=== PATIENT | female | born 1955 | race Hispanic/Latino ===

== ENCOUNTER → 2017-11-07 | Outpatient (CLI) | payer MEDICARE ==
[~2017-11-07] MED LIST: ASPI-1181 PO; ATOR10 PO; ATOR10TA69 PO; ATOR40TA69 PO; BENZ-51 PO; CILO100T PO; DOXY100C2 PO; ESOM40CA PO; FERS325 PO; GUAI177L5 PO; IBUP-2077 PO; INSU100I13 SQ; INSU3INS5 SQ; ISOS30TA6 PO; ISOS60TA4 PO; LISI-617 PO; LISI1TAB13 PO; METO-408 PO; METO-409 PO; METO25TA3 PO; METO25TA6 PO; OMEP40CA37 PO; PRED20TA3 PO; PREG50 GT; REGADENOSON 0.4 MG/5 ML PF SYG IVP SCH; SENN8.6T90 PO; SULF1TAB3 PO; TORS10TA18 PO
== END | disposition home or self-care (01) ==
LOC: SHCH 08:32
PROVIDERS: ATTEND Internal Medicine Cardiovascular Disease
DX: I25.5 Ischemic cardiomyopathy (principal)
CPT/HCPCS: 78452; 93017; 96374; A9500 ×2; J2785

== ENCOUNTER 2017-12-02 06:00 | Day surgery (SDC) | payer MEDICARE ==
[2017-12-01 09:55] VITALS: BP 119/68
[2017-12-01 10:30] LABS: BASOPHILS % (AUTO) 0.8 % (0.0-5.0); EOSINOPHILS % (AUTO) 4.1 % (0.0-8.0); HEMATOCRIT 28.5 % (36-48); LYMPHOCYTES % (AUTO) 20.3 % (21.0-51.0); MEAN CORPUSCULAR HEMOGLOBIN 27.4 pg (27.0-33.0); MEAN CORPUSCULAR HGB CONC 32.7 g/dL (32.0-36.0); MEAN CORPUSCULAR VOLUME 83.9 fL (79-99); MONOCYTES % (AUTO) 8.1 % (3.0-13.0); NEUTROPHILS % (AUTO) 66.7 % (40.0-77.0); PLATELET COUNT (AUTO) 130 K/uL (130-400); RED CELL DISTRIBUTION WIDTH 16.8 % (11.0-15.5); WHITE BLOOD COUNT (AUTO) 7.4 K/uL (4.8-10.8)
[2017-12-01 10:43] LABS: CREATININE 1.1 mg/dL (0.5-1.5); POTASSIUM 5.4 mmol/L (3.5-5.1)
[2017-12-01 10:44] LABS: INR 0.99 (0.85-1.15); PARTIAL THROMBOPLASTIN TIME 27.9 SEC (26.3-35.5); PROTHROMBIN TIME 10.4 SEC (9.6-11.6)
[2017-12-01 10:45] LABS: APPEARANCE,URINE Clear (CLEAR); BILIRUBIN,URINE Negative (NEGATIVE); COLOR,URINE Yellow (YELLOW); GLUCOSE, URINE (UA) TRACE mg/dL (NEGATIVE); KETONES,URINE Negative (NEGATIVE); LEUKOCYTE ESTERASE ,URINE Small (NEGATIVE); NITRATE,URINE Negative (NEGATIVE); OCCULT BLOOD,URINE Negative (NEGATIVE); PROTEIN,URINE POS 1+ (NEGATIVE); UROBILINOGEN,URINE 0.2 mg/dL (0.2-1.0)
[2017-12-01 11:09] LABS: BACTERIA,URINE Rare /HPF (None Seen); SQUAMOUS EPITHELIAL CELL,UR Rare /LPF (0-2)
[2017-12-02] VITALS (11 sets, daily range): BP systolic 99–140; BP diastolic 36–83
[~2017-12-02] VITALS: Ht 161.3 cm; Wt 122.2 kg
[~2017-12-02 06:00] MED LIST changes: -ATOR10 PO; -ATOR40TA69 PO; -BENZ-51 PO; -CILO100T PO; -DOXY100C2 PO; -ESOM40CA PO; -IBUP-2077 PO; -INSU100I13 SQ; -ISOS30TA6 PO; -ISOS60TA4 PO; -LISI-617 PO; -METO-408 PO; -METO-409 PO; -METO25TA3 PO; -OMEP40CA37 PO; -PRED20TA3 PO; -PREG50 GT; -REGADENOSON 0.4 MG/5 ML PF SYG IVP SCH; -SENN8.6T90 PO; +SODIUM CHLORIDE 0.9% 500ML 500 ML IV SCH; -SULF1TAB3 PO; -TORS10TA18 PO
[2017-12-02] MEDS ORDERED: SODIUM CHLORIDE 0.9% 1000ML 1,000 ML IV ONE (06:25)
[2017-12-02 06:43] LABS: POTASSIUM 5.4 mmol/L (3.5-5.1)
[2017-12-02] MEDS ORDERED: METO-408 PO (07:06)
[2017-12-02] MEDS ORDERED: BENZ-51 PO (07:10)
[2017-12-02] MEDS ORDERED: SULF1TAB3 PO (07:10)
[2017-12-02] MEDS ORDERED: PRED20TA3 PO (07:10)
[2017-12-02] MEDS ORDERED: HEPARIN SODIUM 1000UNIT/ML 10ML VIAL ONE (07:11)
[2017-12-02] MEDS ORDERED: BIVALIRUDIN 250 MG/VIAL IV ONE (07:11)
[2017-12-02] MEDS ORDERED: LIDOCAINE HCL 2% 20ML ONE (07:11)
[2017-12-02] MEDS ORDERED: IOPAMIDOL-370 75 ML VIAL IV ONE (07:11)
[2017-12-02] MEDS ORDERED: NITROGLYCERIN 5 MG/ML 10 ML VIAL IV ONE (07:11)
[2017-12-02] MEDS ORDERED: IOPAMIDOL-370 100 ML VIAL IV ONE (07:11)
[2017-12-02] MEDS ORDERED: FENTANYL CITRATE PF 50 MCG/1 ML 2ML VIAL ONE (07:46)
[2017-12-02] MEDS ORDERED: MIDAZOLAM HCL 1 MG/ML 2ML VIAL ONE (07:46)
[2017-12-02] MEDS ORDERED: SODIUM CHLORIDE 0.9% 1000ML 1,000 ML IV SCH (08:16)
[2017-12-02] MEDS ORDERED: ISOS60TA4 PO (08:26)
[2017-12-02] MEDS ORDERED: DEXTROSE 50%-WATER 50 ML DISP.SYRIN IV PRN (08:30)
[2017-12-02] MEDS ORDERED: METOPROLOL TARTRATE 1 MG/ML 5ML VIAL IV PRN (08:30)
[2017-12-02] MEDS ORDERED: HYDRALAZINE HCL 20 MG/ML VIAL IV PRN (08:30)
[2017-12-02] MEDS ORDERED: NITROGLYCERIN 0.4 MG SL TAB SL PRN (08:30)
[2017-12-02] MEDS ORDERED: GLUCAGON 1MG KIT 1 MG ML IM PRN (08:30)
[2017-12-02] MEDS ORDERED: ACETAMINOPHEN EXTRA STRENGTH 500 MG TABLET ONE (10:31)
[2017-12-02] MEDS ORDERED: ACETAMINOPHEN EXTRA STRENGTH 500 MG TABLET PO SCH (10:34)
[2017-12-02] MEDS ORDERED: INSULIN HUMULIN R 100 UNIT/ML 3ML SQ SCH (11:30)
[2017-12-15] MEDS ORDERED: LISI1TAB13 PO ×2 (10:48→10:51)
== END 2017-12-02 14:40 | disposition home or self-care (01) ==
LOC: DAH 06:00
PROVIDERS: ATTEND Internal Medicine Cardiovascular Disease
DX: I25.119 Atherosclerotic heart disease of native coronary artery with unspecified angina pectoris (principal); E11.51 Type 2 diabetes mellitus with diabetic peripheral angiopathy without gangrene; E78.5 Hyperlipidemia, unspecified; I50.42 Chronic combined systolic (congestive) and diastolic (congestive) heart failure; I11.0 Hypertensive heart disease with heart failure; E66.01 Morbid (severe) obesity due to excess calories; M19.90 Unspecified osteoarthritis, unspecified site; Z79.4 Long term (current) use of insulin; Z79.82 Long term (current) use of aspirin; Z98.890 Other specified postprocedural states; Z89.422 Acquired absence of other left toe(s); Z90.49 Acquired absence of other specified parts of digestive tract; Z83.3 Family history of diabetes mellitus; Z82.49 Family history of ischemic heart disease and other diseases of the circulatory system
CPT/HCPCS: 36415 ×2; 71045; 80048 ×2; 81001; 82948; 85025; 85610; 85730; 93005; 93458; 99156; 99157; C1894 ×3; J1644; J1815; J2250; J3010; J3490 ×2; J7030; Q9967 ×2; 99152; 99153; J0583

== ENCOUNTER 2017-12-12 08:00 | Inpatient (IN) | payer MEDICARE ==
[~2017-12-12] VITALS: Ht 162.6 cm; Wt 126.6 kg
[~2017-12-12 08:00] MED LIST changes: -GUAI177L5 PO; -INSU3INS5 SQ; -LISI1TAB13 PO; -METO25TA6 PO; -SODIUM CHLORIDE 0.9% 500ML 500 ML IV SCH
[2017-12-15 09:55] VITALS: BP 138/72
[2017-12-15 10:21] LABS: BASOPHILS % (AUTO) 0.4 % (0.0-5.0); EOSINOPHILS % (AUTO) 3.2 % (0.0-8.0); HEMATOCRIT 30.4 % (36-48); LYMPHOCYTES % (AUTO) 25.3 % (21.0-51.0); MEAN CORPUSCULAR HEMOGLOBIN 28.1 pg (27.0-33.0); MEAN CORPUSCULAR HGB CONC 33.3 g/dL (32.0-36.0); MEAN CORPUSCULAR VOLUME 84.4 fL (79-99); MONOCYTES % (AUTO) 9.9 % (3.0-13.0); NEUTROPHILS % (AUTO) 61.2 % (40.0-77.0); PLATELET COUNT (AUTO) 160 K/uL (130-400); RED CELL DISTRIBUTION WIDTH 17.2 % (11.0-15.5); WHITE BLOOD COUNT (AUTO) 7.9 K/uL (4.8-10.8)
[2017-12-15 10:28] LABS: HEMOGLOBIN A1C 7.9 % (4.0-6.0)
[2017-12-15 10:35] LABS: ALBUMIN 2.7 g/dL (3.5-5.0); BILIRUBIN,TOTAL 0.4 mg/dL (0.2-1.0); CREATININE 0.9 mg/dL (0.5-1.5); INR 0.96 (0.85-1.15); PARTIAL THROMBOPLASTIN TIME 25.9 SEC (26.3-35.5); POTASSIUM 5.1 mmol/L (3.5-5.1); PROTHROMBIN TIME 10.1 SEC (9.6-11.6); TOTAL PROTEIN, SERUM 6.7 g/dL (6.0-8.3)
[2017-12-15] MEDS ORDERED: ISOS30TA6 PO (10:48)
[2017-12-15] MEDS ORDERED: LISI1TAB13 PO (10:51)
[2017-12-15] MEDS ORDERED: INSU100I13 SQ ×2 (10:59)
[2017-12-16] VITALS (18 sets, daily range): BP systolic 87–192; BP diastolic 49–79
[2017-12-16] MEDS ORDERED: OCTYL 2-CYANOACRYLATE 1 EACH TP ONE (05:43)
[2017-12-16] MEDS ORDERED: HEPARIN SODIUM 1000UNIT/ML 10ML VIAL ONE ×3 (05:43→08:10)
[2017-12-16] MEDS ORDERED: BACITRACIN 50,000 UNIT VIAL ONE (05:43)
[2017-12-16] MEDS ORDERED: PAPAVERINE HCL 30 MG/ML 2ML VIAL ONE (05:43)
[2017-12-16] MEDS ORDERED: NITROGLYCERIN 50 MG/D5% WATER 1 BOT ONE (06:37)
[2017-12-16] MEDS ORDERED: ROCURONIUM BROMIDE 10MG/1ML 5ML VL ONE ×2 (06:45→08:10)
[2017-12-16] MEDS ORDERED: SODIUM CHLORIDE 0.9% 1000ML 1,000 ML IV ONE ×2 (06:50→11:17)
[2017-12-16] MEDS ORDERED: CEFUROXIME SODIUM 1.5 GM VIAL ONE (06:50)
[2017-12-16] MEDS ORDERED: THROMBIN-JMI 5000 UNIT/VIAL TP ONE (07:10)
[2017-12-16] MEDS ORDERED: OMEP40CA37 PO (07:12)
[2017-12-16] MEDS ORDERED: DOXY100C2 PO (07:12)
[2017-12-16] MEDS ORDERED: SENN8.6T90 PO (07:12)
[2017-12-16] MEDS ORDERED: METO25TA3 PO (07:12)
[2017-12-16] MEDS ORDERED: CEFUROXIME SODIUM 1.5 GM VIAL IVP ONE (08:00)
[2017-12-16] MEDS ORDERED: WATER FOR INJECTION,STERILE 20 ML VIAL IJ ONE (08:00)
[2017-12-16] MEDS ORDERED: MIDAZOLAM HCL 1 MG/ML 2ML VIAL ONE (08:09)
[2017-12-16] MEDS ORDERED: AMIODARONE HCL 900MG/18ML IV ONE (08:10)
[2017-12-16] MEDS ORDERED: MILRINONE-D5W 20 MG/100 ML 100 ML IV ONE (08:10)
[2017-12-16] MEDS ORDERED: LIDOCAINE PF 2% 5ML ABBOJECT ONE (08:10)
[2017-12-16] MEDS ORDERED: NOREPINEPHRINE BITARTRATE 1 MG/1 ML ML IV ONE (08:10)
[2017-12-16] MEDS ORDERED: NEOSTIGMINE METHYLSULFATE 1MG/ML IV ONE (08:10)
[2017-12-16] MEDS ORDERED: FENTANYL CITRATE PF 50 MCG/1 ML 20ML VIAL IJ ONE (08:10)
[2017-12-16] MEDS ORDERED: EPINEPHRINE 1 MG/ML AMPULE ONE (08:10)
[2017-12-16] MEDS ORDERED: ESMOLOL HCL 10 MG/ML 10 ML VIAL ONE (08:10)
[2017-12-16] MEDS ORDERED: PROPOFOL 10 MG/ML 20ML VIAL IV ONE (08:10)
[2017-12-16] MEDS ORDERED: PROTAMINE SULFATE 10 MG/ML 25ML VIAL IV ONE (08:10)
[2017-12-16] MEDS ORDERED: GLYCOPYRROLATE 0.2 MG/ML 5 ML VIAL ONE (08:10)
[2017-12-16] MEDS ORDERED: MIDAZOLAM HCL 1 MG/ML 5ML VIAL ONE (08:10)
[2017-12-16] MEDS ORDERED: AMINOCAPROIC ACID 250 MG/ML 20 ML VIAL IV ONE (08:10)
[2017-12-16] MEDS ORDERED: KETAMINE HCL 100 MG/ML 5ML VIAL IJ ONE (08:11)
[2017-12-16 08:35] LABS: ABG BASE EXCESS -4.2 mmol/L (-2.0-3.0); ABG HCO3 21.1 mmol/L (21.0-28.0); ABG PCO2 40 mmHg (32-45)
[2017-12-16 10:13] LABS: ABG HCO3 18.2 mmol/L (21.0-28.0); ABG OXYGEN SATURATION 99.1 % (95.0-99.0); ABG PCO2 31 mmHg (32-45)
[2017-12-16] MEDS ORDERED: SODIUM BICARB 50MEQ 50ML VIAL ONE ×4 (10:13→15:07)
[2017-12-16 11:00] LABS: ABG BASE EXCESS -2.4 mmol/L (-2.0-3.0); ABG OXYGEN SATURATION 98.4 % (95.0-99.0); ABG PCO2 36 mmHg (32-45)
[2017-12-16] MEDS ORDERED: SODIUM CHLORIDE 0.9% 500ML 500 ML IV SCH (11:06)
[2017-12-16] MEDS ORDERED: MORPHINE SULFATE 2 MG/ML 1ML SYG IV PRN (11:15)
[2017-12-16] MEDS ORDERED: PROPOFOL 1000 MG/100 ML 100 ML IV PRN (11:15)
[2017-12-16] MEDS ORDERED: POTASSIUM PHOS 15 mMOL+NS250ML 250 ML IV PRN (11:15)
[2017-12-16] MEDS ORDERED: DEXTROSE 50%-WATER 50 ML DISP.SYRIN IV PRN (11:15)
[2017-12-16] MEDS ORDERED: EPINEPHRINE 2 MG in SODIUM CHLORIDE 0.9% 250 ML IV PRN (11:15)
[2017-12-16] MEDS ORDERED: ALBUMIN (HUMAN) 5% 250 ML IV PRN (11:15)
[2017-12-16] MEDS ORDERED: MAGNESIUM 2GM PREMIX 50ML 50 ML IV PRN (11:15)
[2017-12-16] MEDS ORDERED: CALCIUM GLUCONATE 1 GM in SODIUM CHLORIDE 0.9% 50 ML IV PRN (11:15)
[2017-12-16] MEDS ORDERED: ACETAMINOPHEN 650 MG SUPPOSITORY RC PRN (11:15)
[2017-12-16] MEDS ORDERED: NICARDIPINE HCL 100 MG in SODIUM CHLORIDE 0.9% 100 ML IV PRN (11:15)
[2017-12-16] MEDS ORDERED: NITROGLYCERIN 50 MG/D5% WATER 250 BOT IV SCH (11:15)
[2017-12-16] MEDS ORDERED: AMINOCAPROIC ACID 15,000 MG in SODIUM CHLORIDE 0.9% 250 ML IV SCH (11:15)
[2017-12-16] MEDS ORDERED: SODIUM CHLORIDE 0.9% 250 ML IV PRN (11:15)
[2017-12-16] MEDS ORDERED: GLUCAGON 1MG KIT 1 MG ML IM PRN (11:15)
[2017-12-16] MEDS ORDERED: SODIUM CHLORIDE 0.9% 1000ML 1,000 ML IV SCH (11:15)
[2017-12-16] MEDS ORDERED: POTASSIUM CHLORIDE 20MEQ/100ML 100 ML IV PRN (11:15)
[2017-12-16] MEDS ORDERED: ACETAMINOPHEN 325 MG TAB PO PRN (11:15)
[2017-12-16] MEDS ORDERED: SODIUM BICARB 8.4% 50ML SYRINGE IV PRN (11:15)
[2017-12-16] MEDS ORDERED: SODIUM CHLORIDE 0.9% 10 ML VIAL IVP PRN (11:15)
[2017-12-16] MEDS ORDERED: NOREPINEPHRINE 4MG/NS 250ML 250 ML IV PRN (11:15)
[2017-12-16] MEDS: MORPHINE SULFATE 4 MG/1ML SYG IV PRN (11:55)
[2017-12-16 12:03] LABS: ABG BASE EXCESS -5.9 mmol/L (-2.0-3.0); ABG HCO3 19.5 mmol/L (21.0-28.0); ABG OXYGEN SATURATION 97.6 % (95.0-99.0); ABG PCO2 38 mmHg (32-45)
[2017-12-16 12:09] LABS: HEMATOCRIT 23.8 % (36-48); MEAN CORPUSCULAR HEMOGLOBIN 27.9 pg (27.0-33.0); MEAN CORPUSCULAR HGB CONC 33.5 g/dL (32.0-36.0); MEAN CORPUSCULAR VOLUME 83.1 fL (79-99); PLATELET COUNT (AUTO) 133 K/uL (130-400); RED BLOOD CELL COUNT(AUTO) 2.86 MIL/uL (4.00-5.50); RED CELL DISTRIBUTION WIDTH 16.9 % (11.0-15.5); WHITE BLOOD COUNT (AUTO) 12.4 K/uL (4.8-10.8)
[2017-12-16] MEDS: ONDANSETRON HCL 4 MG/2 ML VIAL IV PRN (12:16)
[2017-12-16 12:19] LABS: MAGNESIUM 1.6 mg/dL (1.80-2.40); PHOSPHORUS 4.5 mg/dL (2.5-4.9); POTASSIUM 4.4 mmol/L (3.5-5.1)
[2017-12-16] MEDS: INSULIN REGULAR, HUMAN 3ML 100 UNIT in SODIUM CHLORIDE 0.9% 99 ML IV SCH ×2 (12:37)
[2017-12-16] MEDS: DOXYCYCLINE 100MG+NS 250ML 250 ML IV SCH (12:38)
[2017-12-16 15:05] LABS: ABG HCO3 21.5 mmol/L (21.0-28.0); ABG OXYGEN SATURATION 97.9 % (95.0-99.0); ABG PCO2 45 mmHg (32-45)
[2017-12-16 15:43] LABS: ABG BASE EXCESS -3.2 mmol/L (-2.0-3.0); ABG HCO3 22.1 mmol/L (21.0-28.0); ABG OXYGEN SATURATION 97.6 % (95.0-99.0); ABG PCO2 41 mmHg (32-45)
[2017-12-16] MEDS: HYDROCODONE/ACETAMINOPHEN 5/325 MG TAB PO PRN ×2 (18:01→22:11)
[2017-12-16] MEDS: CEFUROXIME SODIUM 1.5 GM VIAL IVP SCH (18:23)
[2017-12-16] MEDS: WATER FOR INJECTION,STERILE 20 ML VIAL IJ SCH (18:24)
[2017-12-16] MEDS ORDERED: CEFUROXIME 1.5GM+NS 100ML 100 ML IV SCH (19:15)
[2017-12-16] MEDS: FAMOTIDINE/PF 20 MG/2 ML VIAL IV SCH (21:00)
[2017-12-17] VITALS (24 sets, daily range): BP systolic 85–127; BP diastolic 36–80
[2017-12-17] MEDS ORDERED: INSULIN HUMULIN R 100 UNIT/ML 3ML ONE (01:14)
[2017-12-17] MEDS: DOXYCYCLINE 100MG+NS 250ML 250 ML IV SCH ×4 (01:34→23:29)
[2017-12-17] MEDS: INSULIN REGULAR, HUMAN 3ML 100 UNIT in SODIUM CHLORIDE 0.9% 99 ML IV SCH ×2 (01:43)
[2017-12-17 04:00] LABS: HEMATOCRIT 23.6 % (36-48); MEAN CORPUSCULAR HEMOGLOBIN 26.8 pg (27.0-33.0); MEAN CORPUSCULAR HGB CONC 32.1 g/dL (32.0-36.0); MEAN CORPUSCULAR VOLUME 83.5 fL (79-99); PLATELET COUNT (AUTO) 126 K/uL (130-400); RED BLOOD CELL COUNT(AUTO) 2.83 MIL/uL (4.00-5.50); RED CELL DISTRIBUTION WIDTH 16.6 % (11.0-15.5); WHITE BLOOD COUNT (AUTO) 15.5 K/uL (4.8-10.8)
[2017-12-17] MEDS: HYDROCODONE/ACETAMINOPHEN 5/325 MG TAB PO PRN ×2 (04:03→16:24)
[2017-12-17] MEDS: ONDANSETRON HCL 4 MG/2 ML VIAL IV PRN ×2 (04:03→08:56)
[2017-12-17 04:16] LABS: CREATININE 1.4 mg/dL (0.5-1.5); PHOSPHORUS 4.4 mg/dL (2.5-4.9); POTASSIUM 4.2 mmol/L (3.5-5.1)
[2017-12-17] MEDS: CEFUROXIME SODIUM 1.5 GM VIAL IVP SCH ×2 (06:25→18:50)
[2017-12-17] MEDS: WATER FOR INJECTION,STERILE 20 ML VIAL IJ SCH ×2 (06:26→18:50)
[2017-12-17] MEDS: FAMOTIDINE/PF 20 MG/2 ML VIAL IV SCH ×2 (08:55→22:33)
[2017-12-17] MEDS: FE FUMARATE/FA/MV, MIN COMB#15 1 TAB PO SCH (08:55)
[2017-12-17] MEDS: METOPROLOL TARTRATE 25 MG TAB PO SCH ×2 (09:00→21:00)
[2017-12-17] MEDS: ASPIRIN 81MG TAB.CHEW PO SCH (09:57)
[2017-12-17] MEDS: ATORVASTATIN CALCIUM 40 MG TABLET PO SCH (09:57)
[2017-12-17] MEDS: MORPHINE SULFATE 4 MG/1ML SYG IV PRN (11:12)
[2017-12-18] VITALS (20 sets, daily range): BP systolic 72–128; BP diastolic 42–74
[2017-12-18 04:03] LABS: MEAN CORPUSCULAR HEMOGLOBIN 27.8 pg (27.0-33.0); MEAN CORPUSCULAR HGB CONC 33.1 g/dL (32.0-36.0); PLATELET COUNT (AUTO) 88 K/uL (130-400); RED BLOOD CELL COUNT(AUTO) 2.41 MIL/uL (4.00-5.50); RED CELL DISTRIBUTION WIDTH 17.1 % (11.0-15.5); WHITE BLOOD COUNT (AUTO) 11.7 K/uL (4.8-10.8)
[2017-12-18 04:20] LABS: HEMATOCRIT 20.3 % (36-48)
[2017-12-18 04:24] LABS: CREATININE 1.2 mg/dL (0.5-1.5); POTASSIUM 4.5 mmol/L (3.5-5.1)
[2017-12-18] MEDS: HYDROCODONE/ACETAMINOPHEN 5/325 MG TAB PO PRN ×3 (06:30→21:57)
[2017-12-18] MEDS ORDERED: INSULIN HUMULIN 70/30 100 UNIT/ML 3ML SQ SCH ×2 (07:30→21:00)
[2017-12-18] MEDS: INSULIN HUMULIN R 100 UNIT/ML 3ML SQ SCH ×4 (07:30→21:00)
[2017-12-18] MEDS: ASPIRIN 81MG TAB.CHEW PO SCH (09:31)
[2017-12-18] MEDS: FE FUMARATE/FA/MV, MIN COMB#15 1 TAB PO SCH (09:31)
[2017-12-18] MEDS: FAMOTIDINE/PF 20 MG/2 ML VIAL IV SCH ×2 (09:31→21:17)
[2017-12-18] MEDS: DOXYCYCLINE 100MG+NS 250ML 250 ML IV SCH (09:31)
[2017-12-18] MEDS: ATORVASTATIN CALCIUM 40 MG TABLET PO SCH (09:31)
[2017-12-18] MEDS: FUROSEMIDE 20 MG TABLET PO SCH ×2 (14:59→21:18)
[2017-12-18] MEDS: INSULIN HUMULIN 70/30 100 UNIT/ML 3ML SQ SCH (16:26)
[2017-12-18] MEDS: ENOXAPARIN SODIUM 30 MG/0.3 ML SQ SCH (21:17)
[2017-12-18] MEDS: DOXYCYCLINE HYCLATE 100 MG TABLET PO SCH (21:17)
[2017-12-19] VITALS (7 sets, daily range): BP systolic 93–107; BP diastolic 49–66
[2017-12-19] MEDS: HYDROCODONE/ACETAMINOPHEN 5/325 MG TAB PO PRN ×2 (05:07→16:27)
[2017-12-19 05:14] LABS: HEMATOCRIT 24.6 % (36-48); MEAN CORPUSCULAR HEMOGLOBIN 27.4 pg (27.0-33.0); MEAN CORPUSCULAR HGB CONC 33.1 g/dL (32.0-36.0); MEAN CORPUSCULAR VOLUME 82.7 fL (79-99); NUCLEATED RED BLOOD CELLS 0.2 % (0.0-0.19); PLATELET COUNT (AUTO) 84 K/uL (130-400); RED BLOOD CELL COUNT(AUTO) 2.98 MIL/uL (4.00-5.50); RED CELL DISTRIBUTION WIDTH 16.2 % (11.0-15.5); WHITE BLOOD COUNT (AUTO) 9.4 K/uL (4.8-10.8)
[2017-12-19 05:31] LABS: ALBUMIN 1.8 g/dL (3.5-5.0); BILIRUBIN,TOTAL 0.5 mg/dL (0.2-1.0); CREATININE 1.1 mg/dL (0.5-1.5); MAGNESIUM 2.1 mg/dL (1.80-2.40); PHOSPHORUS 3.1 mg/dL (2.5-4.9); POTASSIUM 4.7 mmol/L (3.5-5.1); TOTAL PROTEIN, SERUM 5.5 g/dL (6.0-8.3)
[2017-12-19] MEDS: METOPROLOL TARTRATE 25 MG TAB PO SCH ×2 (06:13→21:30)
[2017-12-19] MEDS: INSULIN HUMULIN R 100 UNIT/ML 3ML SQ SCH ×4 (06:34→21:30)
[2017-12-19] MEDS: INSULIN HUMULIN 70/30 100 UNIT/ML 3ML SQ SCH ×2 (06:36→16:29)
[2017-12-19] MEDS: FUROSEMIDE 20 MG TABLET PO SCH ×2 (10:16→21:27)
[2017-12-19] MEDS: FAMOTIDINE/PF 20 MG/2 ML VIAL IV SCH ×2 (10:16→21:27)
[2017-12-19] MEDS: DOXYCYCLINE HYCLATE 100 MG TABLET PO SCH ×2 (10:16→21:27)
[2017-12-19] MEDS: FE FUMARATE/FA/MV, MIN COMB#15 1 TAB PO SCH (10:16)
[2017-12-19] MEDS: ATORVASTATIN CALCIUM 40 MG TABLET PO SCH (10:16)
[2017-12-19] MEDS: ASPIRIN 81MG TAB.CHEW PO SCH (10:16)
[2017-12-19] MEDS: ENOXAPARIN SODIUM 30 MG/0.3 ML SQ SCH (10:17)
[2017-12-19] MEDS ORDERED: SODIUM CHLORIDE 3% FOR INHALATION 4 ML/AMP VIAL.NEB IH ONE (20:31)
[2017-12-20 04:00] VITALS: BP 105/67
[2017-12-20 04:52] LABS: BASOPHILS % (AUTO) 0.5 % (0.0-5.0); EOSINOPHILS % (AUTO) 0.6 % (0.0-8.0); MEAN CORPUSCULAR HEMOGLOBIN 27.8 pg (27.0-33.0); MEAN CORPUSCULAR HGB CONC 33.4 g/dL (32.0-36.0); MEAN CORPUSCULAR VOLUME 83.5 fL (79-99); MONOCYTES % (AUTO) 8.4 % (3.0-13.0); NEUTROPHILS % (AUTO) 75.5 % (40.0-77.0); NUCLEATED RED BLOOD CELLS 0.1 % (0.0-0.19); PLATELET COUNT (AUTO) 98 K/uL (130-400); RED BLOOD CELL COUNT(AUTO) 2.88 MIL/uL (4.00-5.50); WHITE BLOOD COUNT (AUTO) 7.7 K/uL (4.8-10.8)
[2017-12-20 05:35] LABS: CREATININE 1.4 mg/dL (0.5-1.5); POTASSIUM 5.4 mmol/L (3.5-5.1)
[2017-12-20] MEDS: INSULIN HUMULIN R 100 UNIT/ML 3ML SQ SCH ×4 (06:04→21:00)
[2017-12-20] MEDS: INSULIN HUMULIN 70/30 100 UNIT/ML 3ML SQ SCH ×2 (06:59→16:47)
[2017-12-20 07:00] VITALS: BP 120/73
[2017-12-20] MEDS: HYDROCODONE/ACETAMINOPHEN 5/325 MG TAB PO PRN (09:45)
[2017-12-20] MEDS: ASPIRIN 81MG TAB.CHEW PO SCH (09:45)
[2017-12-20] MEDS: FE FUMARATE/FA/MV, MIN COMB#15 1 TAB PO SCH (09:45)
[2017-12-20] MEDS: METOPROLOL TARTRATE 25 MG TAB PO SCH (09:45)
[2017-12-20] MEDS: DOXYCYCLINE HYCLATE 100 MG TABLET PO SCH ×2 (09:45→20:59)
[2017-12-20] MEDS: ATORVASTATIN CALCIUM 40 MG TABLET PO SCH (09:45)
[2017-12-20] MEDS: FAMOTIDINE/PF 20 MG/2 ML VIAL IV SCH ×2 (09:45→20:59)
[2017-12-20] MEDS: FUROSEMIDE 20 MG TABLET PO SCH (09:46)
[2017-12-20] MEDS: ENOXAPARIN SODIUM 30 MG/0.3 ML SQ SCH (09:46)
[2017-12-20] MEDS ORDERED: LACTULOSE 20 GM/30 ML UDCUP PO PRN (10:30)
[2017-12-20 11:00] VITALS: BP 100/67
[2017-12-20 16:00] VITALS: BP 125/77
[2017-12-20] MEDS ORDERED: TRAMADOL HCL 50 MG TABLET PO PRN (18:15)
[2017-12-20 19:38] VITALS: BP 111/66
== END 2017-12-20 22:21 | disposition home or self-care (01) | DRG 235 ==
LOC: EDSTATUS 12-15 11:30 → DAHIP 12-16 05:54 → 2CV 12-16 09:43 → 2CH 12-17 03:02 → 2DH 12-19 05:43
PROVIDERS: ADMIT Thoracic Surgery (Cardiothoracic Vascular Surgery); ATTEND Thoracic Surgery (Cardiothoracic Vascular Surgery)
PROC: 06BQ4ZZ Excision of Left Saphenous Vein, Percutaneous Endoscopic Approach (ICD-10-PCS; principal; 2017-12-16 08:09)
PROC: 02100Z9 Bypass Coronary Artery, One Artery from Left Internal Mammary, Open Approach (ICD-10-PCS; 2017-12-16 08:09)
PROC: 021109W Bypass Coronary Artery, Two Arteries from Aorta with Autologous Venous Tissue, Open Approach (ICD-10-PCS; 2017-12-16 08:09)
PROC: 30233N1 Transfusion of Nonautologous Red Blood Cells into Peripheral Vein, Percutaneous Approach (ICD-10-PCS; 2017-12-18)
DX: I25.10 Atherosclerotic heart disease of native coronary artery without angina pectoris (principal); J18.9 Pneumonia, unspecified organism; E11.21 Type 2 diabetes mellitus with diabetic nephropathy; I13.0 Hypertensive heart and chronic kidney disease with heart failure and stage 1 through stage 4 chronic kidney disease, or unspecified chronic kidney disease; E11.51 Type 2 diabetes mellitus with diabetic peripheral angiopathy without gangrene; N17.9 Acute kidney failure, unspecified; I50.42 Chronic combined systolic (congestive) and diastolic (congestive) heart failure; E83.42 Hypomagnesemia; M86.671 Other chronic osteomyelitis, right ankle and foot; N18.3 Chronic kidney disease, stage 3 (moderate); E78.5 Hyperlipidemia, unspecified; D64.9 Anemia, unspecified; E87.5 Hyperkalemia; E11.22 Type 2 diabetes mellitus with diabetic chronic kidney disease; E11.621 Type 2 diabetes mellitus with foot ulcer; E11.69 Type 2 diabetes mellitus with other specified complication; L97.519 Non-pressure chronic ulcer of other part of right foot with unspecified severity; I48.91 Unspecified atrial fibrillation; Z82.49 Family history of ischemic heart disease and other diseases of the circulatory system; Z83.3 Family history of diabetes mellitus; Z87.442 Personal history of urinary calculi; Z91.19 Patient's noncompliance with other medical treatment and regimen; Z90.49 Acquired absence of other specified parts of digestive tract; Z89.429 Acquired absence of other toe(s), unspecified side
CPT/HCPCS: 36415; 36600; 71045; 71046; 80048; 80053; 82330; 82435; 82803; 82947; 82948; 83036; 83605; 83735; 84100; 84132; 84295; 85018; 85025; 85027; 85347; 85610; 85730; 86850; 86900; 86901; 86922; 87071; 87205; 93005; 94002; 94010; 94150; 94640; 97039; A6266; A7048; C9113; J0171; J0282; J0610; J0697; J1644; J1650; J1815; J2001; J2250; J2260; J2270; J2405; J2440; J2704; J2710; J2720; J3010; J3475; J3490; J7030; J7040; P9016; P9045

== ENCOUNTER → 2018-03-09 | Outpatient (CLI) | payer MEDICARE ==
[~2018-03-09] MED LIST changes: +ATOR10 PO; -ATOR10TA69 PO; +DOXY100C2 PO; +INSU100I13 SQ; +METO-409 PO; +METO25TA3 PO; +OMEP40CA37 PO; +SENN8.6T90 PO
== END | disposition home or self-care (01) ==
LOC: SHCH 07:42
PROVIDERS: ATTEND Internal Medicine Cardiovascular Disease
DX: I10 Essential (primary) hypertension (principal); I25.10 Atherosclerotic heart disease of native coronary artery without angina pectoris; I34.0 Nonrheumatic mitral (valve) insufficiency; Q21.1 Atrial septal defect; Z95.1 Presence of aortocoronary bypass graft
CPT/HCPCS: 93306

== ENCOUNTER 2018-04-19 10:29 | Inpatient (IN) | payer MEDICARE ==
[~2018-04-19] VITALS: Ht 165.1 cm; Wt 125.2 kg
[~2018-04-19 10:29] MED LIST changes: -ATOR10 PO; -METO-409 PO
[2018-04-19 11:01] LABS: BASOPHILS % (AUTO) 0.8 % (0.0-5.0); EOSINOPHILS % (AUTO) 4.8 % (0.0-8.0); HEMATOCRIT 27.4 % (36-48); LYMPHOCYTES % (AUTO) 32.6 % (21.0-51.0); MEAN CORPUSCULAR HEMOGLOBIN 27.2 pg (27.0-33.0); MEAN CORPUSCULAR HGB CONC 33.1 g/dL (32.0-36.0); MEAN CORPUSCULAR VOLUME 82.3 fL (79-99); MONOCYTES % (AUTO) 8.2 % (3.0-13.0); NEUTROPHILS % (AUTO) 53.6 % (40.0-77.0); NUCLEATED RED BLOOD CELLS 0.2 % (0.0-0.19); PLATELET COUNT (AUTO) 131 K/uL (130-400); RED BLOOD CELL COUNT(AUTO) 3.33 MIL/uL (4.00-5.50); RED CELL DISTRIBUTION WIDTH 17.2 % (11.0-15.5); WHITE BLOOD COUNT (AUTO) 6.4 K/uL (4.8-10.8)
[2018-04-19] MEDS ORDERED: ASPIRIN 325 MG TABLET ONE (11:02)
[2018-04-19] MEDS ORDERED: NITROGLYCERIN 1GM/1 INCH PACKET TD ONE (11:02)
[2018-04-19 11:50] LABS: INR 1.02 (0.85-1.15); PARTIAL THROMBOPLASTIN TIME 26.8 SEC (26.3-35.5); PROTHROMBIN TIME 10.7 SEC (9.6-11.6)
[2018-04-19 12:44] LABS: ALBUMIN 2.7 g/dL (3.5-5.0); BILIRUBIN,TOTAL 0.4 mg/dL (0.2-1.0); CREATINE KINASE MB 1.9 ng/mL (0.5-3.6); POTASSIUM 5.3 mmol/L (3.5-5.1); TOTAL PROTEIN, SERUM 6.7 g/dL (6.0-8.3)
[2018-04-19] MEDS ORDERED: DEXTROSE 50%-WATER 50 ML DISP.SYRIN IV ONE ×2 (12:48→12:56)
[2018-04-19] MEDS ORDERED: IOPAMIDOL-370 100 ML VIAL IV ONE (13:10)
[2018-04-19] MEDS ORDERED: FUROSEMIDE 10 MG/ML 4ML VIAL ONE (16:23)
[2018-04-19 19:00] VITALS: BP 141/83
[2018-04-19] MEDS ORDERED: ACYCLOVIR 800 MG TABLET PO SCH (19:45)
[2018-04-19] MEDS: FUROSEMIDE 10 MG/ML 4ML VIAL IVP SCH (20:43)
[2018-04-19] MEDS: ENOXAPARIN SODIUM 30 MG/0.3 ML SQ SCH (20:49)
[2018-04-20] VITALS: BP 156/77
[2018-04-20] MEDS ORDERED: HYDRALAZINE HCL 20 MG/ML VIAL IV PRN (01:15)
[2018-04-20] MEDS ORDERED: INSU100I13 SQ ×2 (01:16→01:29)
[2018-04-20] MEDS ORDERED: METO-409 PO (01:29)
[2018-04-20] MEDS ORDERED: ATOR10 PO (01:29)
[2018-04-20 04:00] VITALS: BP 119/79
[2018-04-20 06:02] LABS: MEAN CORPUSCULAR HEMOGLOBIN 27.1 pg (27.0-33.0); MEAN CORPUSCULAR HGB CONC 33.3 g/dL (32.0-36.0); MEAN CORPUSCULAR VOLUME 81.2 fL (79-99); NUCLEATED RED BLOOD CELLS 0.1 % (0.0-0.19); PLATELET COUNT (AUTO) 132 K/uL (130-400); RED CELL DISTRIBUTION WIDTH 17.3 % (11.0-15.5); WHITE BLOOD COUNT (AUTO) 5.9 K/uL (4.8-10.8)
[2018-04-20 06:12] LABS: CREATININE 1.1 mg/dL (0.5-1.5)
[2018-04-20] MEDS ORDERED: DEXTROSE 50%-WATER 50 ML DISP.SYRIN IV PRN (06:30)
[2018-04-20] MEDS ORDERED: GLUCAGON 1MG KIT 1 MG ML IM PRN (06:30)
[2018-04-20] MEDS: INSULIN HUMULIN R 100 UNIT/ML 3ML SQ SCH ×2 (07:30→11:30)
[2018-04-20 07:55] VITALS: BP 135/62
[2018-04-20] MEDS: FUROSEMIDE 10 MG/ML 4ML VIAL IVP SCH (08:09)
[2018-04-20] MEDS ORDERED: ACETAMINOPHEN 325 MG TAB PO PRN (08:15)
[2018-04-20] MEDS: ENOXAPARIN SODIUM 30 MG/0.3 ML SQ SCH (08:16)
[2018-04-20] MEDS ORDERED: FAMOTIDINE 20MG TAB 20 MG TAB PO SCH (09:00)
[2018-04-20 11:30] VITALS: BP 143/67
== END 2018-04-20 14:15 | disposition home or self-care (01) | DRG 292 ==
LOC: EDH 10:29 → EDHIP 15:20 → 3AH 18:24
PROVIDERS: ADMIT Internal Medicine Nephrology; ATTEND Internal Medicine Nephrology
DX: I11.0 Hypertensive heart disease with heart failure (principal); Z68.42 Body mass index [BMI] 45.0-49.9, adult; Z95.1 Presence of aortocoronary bypass graft; E11.9 Type 2 diabetes mellitus without complications; I50.9 Heart failure, unspecified; E78.5 Hyperlipidemia, unspecified; E66.9 Obesity, unspecified; I25.10 Atherosclerotic heart disease of native coronary artery without angina pectoris; Z79.82 Long term (current) use of aspirin; Z87.891 Personal history of nicotine dependence; Z87.442 Personal history of urinary calculi; Z83.3 Family history of diabetes mellitus; Z82.49 Family history of ischemic heart disease and other diseases of the circulatory system
CPT/HCPCS: 36415; 71045; 71275; 80048; 80053; 82550; 82553; 82948; 83874; 83880; 84484; 84702; 85025; 85027; 85378; 85610; 85730; 93005; J1650; J1940; J7070; Q9967

== ENCOUNTER 2018-12-29 05:38 | Observation (INO) | payer MEDICARE ==
[~2018-12-29 05:38] MED LIST changes: +ATOR10 PO; -DOXY100C2 PO; -FERS325 PO; +METO-409 PO; -METO25TA3 PO; -OMEP40CA37 PO; -SENN8.6T90 PO
[2018-12-29 06:44] LABS: BASOPHILS % (AUTO) 1.1 % (0.0-5.0); EOSINOPHILS % (AUTO) 6.3 % (0.0-8.0); HEMATOCRIT 28.7 % (36-48); LYMPHOCYTES % (AUTO) 21.2 % (21.0-51.0); MEAN CORPUSCULAR HEMOGLOBIN 28.1 pg (27.0-33.0); MEAN CORPUSCULAR HGB CONC 31.7 g/dL (32.0-36.0); MEAN CORPUSCULAR VOLUME 88.7 fL (79-99); MONOCYTES % (AUTO) 7.6 % (3.0-13.0); NEUTROPHILS % (AUTO) 63.8 % (40.0-77.0); NUCLEATED RED BLOOD CELLS 0.1 % (0.0-0.19); PLATELET COUNT (AUTO) 136 K/uL (130-400); RED BLOOD CELL COUNT(AUTO) 3.23 MIL/uL (4.00-5.50); RED CELL DISTRIBUTION WIDTH 16.8 % (11.0-15.5); WHITE BLOOD COUNT (AUTO) 6.6 K/uL (4.8-10.8)
[2018-12-29 06:46] LABS: BILIRUBIN,URINE NEGATIVE (NEGATIVE); COLOR,URINE YELLOW (YELLOW); GLUCOSE, URINE (UA) NEGATIVE (NEGATIVE); KETONES,URINE NEGATIVE (NEGATIVE); LEUKOCYTE ESTERASE ,URINE MODERATE (NEGATIVE); NITRATE,URINE NEGATIVE (NEGATIVE); OCCULT BLOOD,URINE MODERATE (NEGATIVE); PROTEIN,URINE 100 (NEGATIVE); UROBILINOGEN,URINE 0.2 mg/dL (0.2-1.0)
[2018-12-29 06:49] LABS: APPEARANCE,URINE CLOUDY (CLEAR)
[2018-12-29 06:52] LABS: CREATININE 1.3 mg/dL (0.5-1.5)
[2018-12-29 06:56] LABS: INR 0.97 (0.85-1.15); PARTIAL THROMBOPLASTIN TIME 29.6 SEC (26.3-35.5); PROTHROMBIN TIME 10.2 SEC (9.6-11.6)
[2018-12-29 07:06] LABS: BACTERIA,URINE Many /HPF (None Seen); RBC,URINE 26-50 /HPF (0-1); WBC,URINE 51-100 /HPF (0-1)
[2018-12-29 07:06] LABS: ALBUMIN 2.9 g/dL (3.5-5.0); BILIRUBIN,TOTAL 0.4 mg/dL (0.2-1.0); MAGNESIUM 1.9 mg/dL (1.80-2.40); THYROID STIMULATING HORMONE 2.41 uIU/mL (0.36-3.74); TOTAL PROTEIN, SERUM 6.6 g/dL (6.0-8.3)
[2018-12-29 07:16] LABS: B-TYPE NATRIURETIC PEPTIDE 1250 pg/mL (0-100)
[2018-12-29] MEDS ORDERED: FUROSEMIDE 10 MG/ML 2ML VIAL ONE (07:56)
[2018-12-29] MEDS ORDERED: ASPIRIN 325 MG TABLET ONE (07:56)
[2018-12-29] MEDS ORDERED: CEFTRIAXONE SODIUM 1 GM ONE (07:57)
[2018-12-29] MEDS ORDERED: HYDRALAZINE HCL 20 MG/ML VIAL IV PRN (08:15)
[2018-12-29] MEDS ORDERED: ACETAMINOPHEN 325 MG TAB PO PRN ×2 (08:15)
[2018-12-29] MEDS ORDERED: LACTULOSE 20 GM/30 ML UDCUP PO PRN (08:15)
[2018-12-29] MEDS ORDERED: ONDANSETRON HCL 4 MG/2 ML VIAL IV PRN (08:15)
[2018-12-29] MEDS ORDERED: NITROGLYCERIN 0.4 MG SL TAB SL PRN (08:15)
[2018-12-29] MEDS ORDERED: FAMOTIDINE 20MG TAB 20 MG TAB ONE (08:33)
[2018-12-29] MEDS ORDERED: LISINOPRIL 5 MG TABLET ONE (08:33)
[2018-12-29] MEDS ORDERED: METOPROLOL TARTRATE 25 MG TAB ONE (08:34)
[2018-12-29] MEDS ORDERED: ENOXAPARIN SODIUM 30 MG/0.3 ML SQ ONE (08:34)
[2018-12-29 08:40] LABS: HEMOGLOBIN A1C 7.8 % (4.0-6.0)
[2018-12-29] MEDS ORDERED: LISINOPRIL 10 MG TABLET PO SCH (09:00)
[2018-12-29] MEDS ORDERED: ENOXAPARIN SODIUM 40 MG/0.4 ML SYRINGE SQ SCH (09:00)
[2018-12-29] MEDS ORDERED: METOPROLOL TARTRATE 25 MG TAB PO SCH (09:00)
[2018-12-29] MEDS ORDERED: FAMOTIDINE 20MG TAB 20 MG TAB PO SCH (09:00)
[2018-12-29] MEDS ORDERED: FUROSEMIDE 10 MG/ML 4ML VIAL IVP SCH (09:00)
[2018-12-29] MEDS ORDERED: INSULIN LISPRO 100 UNIT/ML 3ML SQ SCH (11:30)
[2018-12-29] MEDS ORDERED: FUROSEMIDE 10 MG/ML 4ML VIAL ONE (13:24)
[2018-12-29 14:01] LABS: TROPONIN I 0.15 ng/mL (0.00-0.06)
[2018-12-29] MEDS ORDERED: AMLODIPINE BESYLATE 5 MG TAB PO ONE (14:32)
--- NOTE | 2018-12-29 15:29 | NUR ---
DC PT ADMITTED AND DISCHARGE IN ER. DC INSTRUCTIONS GIVEN TO PT WITH RX, INTRUCTED TO F/U WITH DR. ROSS PCP ON FRIDAY . INSTRUCTED ON NEW MED REGIMEN AND POSSIBLE SIDE EFFECT. PIV REMOVED TO LEFT AC. SITE ASYMTOMATIC, CATHETER INTACT, PT GETTING DRESS WILL GO HOME WHEN DAUGHTER PICKS HER UP. REPORT GIVEN TO EFRA BENTON IN ER.
[2018-12-29] MEDS ORDERED: INSULIN GLARGINE 100 UNITS/ML 10 ML VIAL SQ SCH (21:00)
== END 2018-12-29 15:37 | disposition home or self-care (01) ==
LOC: EDH 05:38 → EDHIP 08:01
PROVIDERS: ADMIT Internal Medicine; ATTEND Internal Medicine
DX: I11.0 Hypertensive heart disease with heart failure (principal); I50.43 Acute on chronic combined systolic (congestive) and diastolic (congestive) heart failure; E78.2 Mixed hyperlipidemia; E11.51 Type 2 diabetes mellitus with diabetic peripheral angiopathy without gangrene; I25.10 Atherosclerotic heart disease of native coronary artery without angina pectoris; Z82.49 Family history of ischemic heart disease and other diseases of the circulatory system; Z83.3 Family history of diabetes mellitus; Z87.891 Personal history of nicotine dependence; Z91.19 Patient's noncompliance with other medical treatment and regimen; Z95.1 Presence of aortocoronary bypass graft; Z90.49 Acquired absence of other specified parts of digestive tract
CPT/HCPCS: 36415; 71045; 80053; 81001; 82550; 82948; 83036; 83735; 83874; 83880; 84100; 84443; 84484 ×2; 85025; 85610; 85730; 93005; 99284; G0378 ×8; J0696; J1650; J1940 ×2

== ENCOUNTER 2019-04-06 13:50 | Emergency (ER) | payer MEDICARE ==
[2019-04-06 16:12] LABS: BASOPHILS % (AUTO) 0.8 % (0.0-5.0); HEMATOCRIT 32.8 % (36-48); LYMPHOCYTES % (AUTO) 26.9 % (21.0-51.0); MEAN CORPUSCULAR HEMOGLOBIN 27.8 pg (27.0-33.0); MEAN CORPUSCULAR HGB CONC 32.3 g/dL (32.0-36.0); MONOCYTES % (AUTO) 8.5 % (3.0-13.0); NEUTROPHILS % (AUTO) 57.8 % (40.0-77.0); PLATELET COUNT (AUTO) 141 K/uL (130-400); RED BLOOD CELL COUNT(AUTO) 3.81 MIL/uL (4.00-5.50); RED CELL DISTRIBUTION WIDTH 16.2 % (11.0-15.5); WHITE BLOOD COUNT (AUTO) 5.9 K/uL (4.8-10.8)
[2019-04-06 16:18] LABS: CREATININE 1.3 mg/dL (0.5-1.5); POTASSIUM 4.8 mmol/L (3.5-5.1)
== END 2019-04-06 16:50 | disposition home or self-care (01) ==
LOC: EDH 13:50
DX: B86 Scabies (principal); I25.10 Atherosclerotic heart disease of native coronary artery without angina pectoris; E11.9 Type 2 diabetes mellitus without complications; I10 Essential (primary) hypertension; Z87.442 Personal history of urinary calculi; Z79.4 Long term (current) use of insulin; Z87.891 Personal history of nicotine dependence
CPT/HCPCS: 36415; 80048; 85025

== ENCOUNTER 2019-07-26 09:56 | Emergency (ER) | payer MEDICARE | END 2019-07-26 12:48 | disposition home or self-care (01) | LOC: EDH 09:56 | DX: J06.9 Acute upper respiratory infection, unspecified (principal); I25.10 Atherosclerotic heart disease of native coronary artery without angina pectoris; E11.9 Type 2 diabetes mellitus without complications; I10 Essential (primary) hypertension; Z87.442 Personal history of urinary calculi; Z79.4 Long term (current) use of insulin; Z87.891 Personal history of nicotine dependence | CPT/HCPCS: 71046; 87804 ==

== ENCOUNTER 2019-08-23 04:16 | Inpatient (IN) | payer MEDICARE ==
[~2019-08-23] VITALS: Ht 167.6 cm; Wt 127.3 kg
[2019-08-23 05:20] LABS: BASOPHILS % (AUTO) 0.8 % (0.0-5.0); EOSINOPHILS % (AUTO) 6.4 % (0.0-8.0); LYMPHOCYTES % (AUTO) 21.3 % (21.0-51.0); MEAN CORPUSCULAR HEMOGLOBIN 29.5 pg (27.0-33.0); MEAN CORPUSCULAR HGB CONC 32.9 g/dL (32.0-36.0); MEAN CORPUSCULAR VOLUME 89.8 fL (79-99); MONOCYTES % (AUTO) 8.1 % (3.0-13.0); NEUTROPHILS % (AUTO) 63.4 % (40.0-77.0); PLATELET COUNT (AUTO) 139 K/uL (130-400); RED BLOOD CELL COUNT(AUTO) 3.12 MIL/uL (4.00-5.50); RED CELL DISTRIBUTION WIDTH 16.8 % (11.0-15.5); WHITE BLOOD COUNT (AUTO) 6.4 K/uL (4.8-10.8)
[2019-08-23 05:31] LABS: INR 0.97 (0.85-1.15); PARTIAL THROMBOPLASTIN TIME 25.4 SEC (26.3-35.5); PROTHROMBIN TIME 10.2 SEC (9.6-11.6)
[2019-08-23 05:33] LABS: BILIRUBIN,TOTAL 0.6 mg/dL (0.2-1.0); CREATININE 1.2 mg/dL (0.5-1.5); TOTAL PROTEIN, SERUM 6.5 g/dL (6.0-8.3)
[2019-08-23 05:41] LABS: B-TYPE NATRIURETIC PEPTIDE 780 pg/mL (0-100)
[2019-08-23 05:53] LABS: POTASSIUM 6.2 mmol/L (3.5-5.1)
[2019-08-23] MEDS ORDERED: ASPIRIN 325 MG TABLET ONE (06:01)
[2019-08-23] MEDS ORDERED: FUROSEMIDE 10 MG/ML 4ML VIAL ONE (07:21)
[2019-08-23] MEDS ORDERED: NITROGLYCERIN 1GM/1 INCH PACKET TD ONE (07:21)
[2019-08-23 07:28] LABS: CREATININE 1.1 mg/dL (0.5-1.5)
[2019-08-23 07:45] LABS: POTASSIUM 6.4 mmol/L (3.5-5.1)
[2019-08-23] MEDS ORDERED: ALBUTEROL SULFATE 0.083% 2.5 MG/3 ML INH IH ONE (08:28)
[2019-08-23] MEDS ORDERED: SODIUM BICARB 50MEQ 50ML VIAL ONE (08:40)
[2019-08-23] MEDS ORDERED: CALCIUM GLUCONATE 1 GM/10 ML VIAL IV ONE (08:40)
[2019-08-23] MEDS ORDERED: SODIUM POLYSTYRENE SULFONATE 15 GM/60 ML ML ONE (08:40)
[2019-08-23] MEDS ORDERED: INSULIN HUMULIN R 100 UNIT/ML 3ML ONE (08:41)
[2019-08-23] MEDS ORDERED: DEXTROSE 50%-WATER 50 ML DISP.SYRIN IV ONE (08:42)
[2019-08-23] MEDS ORDERED: SODIUM CHLORIDE 0.9% 50 ML IV ONE (08:42)
[2019-08-23] MEDS ORDERED: DEXTROSE 50%-WATER 50 ML DISP.SYRIN IV PRN (08:45)
[2019-08-23] MEDS ORDERED: SODIUM POLYSTYRENE SULFONATE 15 GM/60 ML ML PO NR (08:45)
[2019-08-23] MEDS ORDERED: GLUCAGON 1MG KIT 1 MG ML IM PRN (08:45)
[2019-08-23] MEDS ORDERED: ACETAMINOPHEN 325 MG TAB PO PRN (08:45)
[2019-08-23] MEDS ORDERED: ONDANSETRON HCL 4 MG/2 ML VIAL IVP PRN (08:45)
[2019-08-23] MEDS: FUROSEMIDE 10 MG/ML 2ML VIAL IVP SCH ×2 (08:45→16:45)
[2019-08-23] MEDS ORDERED: PANTOPRAZOLE 40 MG/VIAL IVP SCH (09:00)
[2019-08-23] MEDS: ASPIRIN 81 MG EC TAB PO SCH (09:00)
[2019-08-23] MEDS: INSULIN R PO SS1 SQ SCH ×3 (11:30→21:00)
[2019-08-23 18:30] VITALS: BP 171/79
[2019-08-23 18:43] LABS: APPEARANCE,URINE Cloudy (CLEAR); BILIRUBIN,URINE Negative (NEGATIVE); COLOR,URINE Yellow (YELLOW); GLUCOSE, URINE (UA) Negative (NEGATIVE); KETONES,URINE Negative (NEGATIVE); LEUKOCYTE ESTERASE ,URINE Large (NEGATIVE); NITRATE,URINE Negative (NEGATIVE); OCCULT BLOOD,URINE Small (NEGATIVE); PROTEIN,URINE POS 2+ mg/dL (NEGATIVE)
[2019-08-23 18:50] LABS: BACTERIA,URINE Moderate /HPF (None Seen); SQUAMOUS EPITHELIAL CELL,UR Rare /HPF (0-2); TRANSITIONAL EPI CELLS,URINE Rare /HPF (None Seen); WBC,URINE 26-50 /HPF (0-1)
--- NOTE | 2019-08-23 19:00 | NUR ---
PT ARRIVED AT 1825 FROM ER DUE TO SOB/GBW. PT ADMITTED FOR HYPERKALEMIA AND CHF. PT STATES NO DISTRESS AT THIS TIME. ON NASAL CANNULA 2LPM. MED REGISTERED IN SYSTEM. PT HAS AMPUTATIONS, DOCUMENTED ON ASSESSMENT. BILATERAL LOWER LOBES CRACKLES NOTED.
[2019-08-23 19:21] VITALS: BP 134/74
--- NOTE | 2019-08-23 20:30 | NUR ---
PT WAS NOTED TO HAVE SKIN ALLERGY OR REACTION. RED BUMPS NOTED THROUGHOUT HER UPPER BACK AND UPPER ARMS. PT STATES HAS HAD THIS ISSUE BEFORE IN THE PAST, TAKES BENADRYL AT HOME PRN FOR THIS REASON. TOOK HOME MEDICATION BENADRYL 50MG, CREAM AND ICE APPLIED FOR COMFORT. PT STABLE AFTER FOLLOW UP AT 2100. FAMILY AT BEDSIDE.
[2019-08-23] MEDS ORDERED: MELA1TAB21 PO (22:13)
[2019-08-23] MEDS ORDERED: LISI-613 PO (22:13)
[2019-08-23] MEDS ORDERED: AMLO5TAB4 PO (22:13)
[2019-08-23] MEDS ORDERED: BENZ200C53 PO (22:13)
[2019-08-23] MEDS ORDERED: FURO40TA5 PO (22:13)
[2019-08-23] MEDS ORDERED: DIPH25TA51 PO (22:13)
[2019-08-23] MEDS ORDERED: NITR0.4T50 SL (22:13)
[2019-08-23 23:16] VITALS: BP 138/87
[2019-08-24] MEDS: FUROSEMIDE 10 MG/ML 2ML VIAL IVP SCH ×3 (01:17→15:28)
[2019-08-24 03:36] VITALS: BP 127/53
[2019-08-24 03:57] LABS: HEMATOCRIT 25.8 % (36-48); MEAN CORPUSCULAR HEMOGLOBIN 30.2 pg (27.0-33.0); MEAN CORPUSCULAR HGB CONC 33.7 g/dL (32.0-36.0); MEAN CORPUSCULAR VOLUME 89.6 fL (79-99); NUCLEATED RED BLOOD CELLS 0.1 % (0.0-0.19); PLATELET COUNT (AUTO) 115 K/uL (130-400); RED BLOOD CELL COUNT(AUTO) 2.88 MIL/uL (4.00-5.50); RED CELL DISTRIBUTION WIDTH 16.6 % (11.0-15.5); WHITE BLOOD COUNT (AUTO) 4.6 K/uL (4.8-10.8)
[2019-08-24 04:03] LABS: HEMOGLOBIN A1C 6.7 % (4.0-6.0)
[2019-08-24 04:20] LABS: % IRON SATURATION 15.6 % (22-44)
[2019-08-24 04:25] LABS: CREATININE 1.2 mg/dL (0.5-1.5); MAGNESIUM 1.9 mg/dL (1.80-2.40); PHOSPHORUS 4.7 mg/dL (2.5-4.9); POTASSIUM 5.7 mmol/L (3.5-5.1); THYROID STIMULATING HORMONE 1.08 uIU/mL (0.36-3.74); URIC ACID 7.4 mg/dL (2.6-7.2)
[2019-08-24] MEDS: INSULIN R PO SS1 SQ SCH ×4 (05:47→21:00)
[2019-08-24 07:00] VITALS: BP 141/74
[2019-08-24] MEDS: ASPIRIN 81 MG EC TAB PO SCH (08:32)
[2019-08-24] MEDS: PANTOPRAZOLE SODIUM 40 MG TABLET.DR PO SCH (09:32)
[2019-08-24 11:00] VITALS: BP 128/78
[2019-08-24] MEDS ORDERED: COMPOUND PO MISCELLANEOUS 1 EACH MISC MISC PRN (12:30)
[2019-08-24] MEDS ORDERED: SODIUM POLYSTYRENE SULFONATE 15 GM/60 ML ML PO SCH (13:20)
--- NOTE | 2019-08-24 13:41 | NUR ---
DC PLAN VISITED WITH PATIENT. PATIENT LIVES WITH DAUGHTER. INDEPENDENT ABLE TO PERFORM ADL'S. PATIENT HAS NO SERVICES. USES A WALKER. FEELS SAFE TO RETURN HOME. Addendum: 08/24/19 at 1343 by MITZI LARA RN CM Amended: Links added.
[2019-08-24] MEDS ORDERED: SODIUM POLYSTYRENE SULFONATE 15 GM/60 ML ML ONE (14:37)
[2019-08-24 15:00] VITALS: BP 144/78
[2019-08-24 19:11] VITALS: BP 163/87
--- NOTE | 2019-08-24 20:02 | NUR ---
ASSESSMENT PATIENT IS RESTING IN BED. NO SIGNS OF DISTRESS. NO SHORTNESS OF BREATH. NO COMPLAINTS OF PAIN. PATIENT IS ALERT AND ORIENTED X4. CALL LIGHT AND BEDSIDE TABLE WITHIN REACH. PATIENT REMINDED THAT SHE WILL BE NPO P MIDNIGHT FOR STRESS TEST TOMORROW. PATIENT REINFORCED TO CALL FOR ANY NEEDS. NO QUESTIONS, CONCERNS, AND NEEDS AT THIS TIME.
[2019-08-24] MEDS: IRON SUCROSE COMPLEX 100 MG in SODIUM CHLORIDE 0.9% 50 ML IV SCH (21:08)
[2019-08-24 23:14] VITALS: BP 135/77
--- NOTE | 2019-08-25 | NUR ---
ASSESSMENT PATIENT IS RESTING IN BED. NO COMPLAINTS OF PAIN AT THIS TIME. NO SIGNS OF DISTRESS. NO SHORTNESS OF BREATH. PATIENTS CALL LIGHT AND PERSONAL BELONGINGS ARE WITHIN REACH. PATIENT REINFORCED TO CALL FOR ANY NEEDS. NO QUESTIONS, CONCERNS, OR NEEDS AT THIS TIME.
[2019-08-25] MEDS: FUROSEMIDE 10 MG/ML 2ML VIAL IVP SCH ×2 (01:45→09:54)
[2019-08-25 03:13] VITALS: BP 131/60
[2019-08-25 03:53] LABS: HEMATOCRIT 27.1 % (36-48); MEAN CORPUSCULAR HEMOGLOBIN 29.6 pg (27.0-33.0); MEAN CORPUSCULAR HGB CONC 33.4 g/dL (32.0-36.0); MEAN CORPUSCULAR VOLUME 88.6 fL (79-99); NUCLEATED RED BLOOD CELLS 0.1 % (0.0-0.19); PLATELET COUNT (AUTO) 126 K/uL (130-400); RED BLOOD CELL COUNT(AUTO) 3.06 MIL/uL (4.00-5.50); RED CELL DISTRIBUTION WIDTH 16.2 % (11.0-15.5); WHITE BLOOD COUNT (AUTO) 4.7 K/uL (4.8-10.8)
--- NOTE | 2019-08-25 04:00 | NUR ---
ASSESSMENT PATIENT IS RESTING IN BED. NO COMPLAINTS OF PAIN AT THIS TIME. NO SIGNS OF DISTRESS. NO SHORTNESS OF BREATH. CALL LIGHT AND BELONGINGS WITHIN REACH. NO NEEDS VOICED AT THIS TIME.
[2019-08-25 04:14] LABS: CREATININE 1.3 mg/dL (0.5-1.5); POTASSIUM 4.8 mmol/L (3.5-5.1)
[2019-08-25] MEDS: INSULIN R PO SS1 SQ SCH ×4 (06:27→20:47)
[2019-08-25] MEDS: PANTOPRAZOLE SODIUM 40 MG TABLET.DR PO SCH (07:30)
[2019-08-25 08:24] VITALS: BP 164/80
[2019-08-25] MEDS: ASPIRIN 81 MG EC TAB PO SCH (08:41)
[2019-08-25] MEDS ORDERED: REGADENOSON 0.4 MG/5 ML PF SYG IVP SCH (10:00)
--- NOTE | 2019-08-25 12:00 | NUR ---
DR. BIGGS IS MAKING HIS ROUNDS. AM LABS ORDERED. PATIENT IS PENDING 2ND PART OF STRESS TEST.
[2019-08-25 12:50] VITALS: BP 162/85
[2019-08-25 16:32] VITALS: BP 164/96
[2019-08-25] MEDS: FUROSEMIDE 40 MG TABLET PO SCH (16:53)
[2019-08-25 18:53] VITALS: BP 150/75
[2019-08-25] MEDS: IRON SUCROSE COMPLEX 100 MG in SODIUM CHLORIDE 0.9% 50 ML IV SCH (21:04)
[2019-08-25 23:02] VITALS: BP 137/83
[2019-08-26 02:24] LABS: APPEARANCE,URINE Cloudy (CLEAR); BILIRUBIN,URINE Negative (NEGATIVE); COLOR,URINE Yellow (YELLOW); GLUCOSE, URINE (UA) Negative (NEGATIVE); KETONES,URINE Negative (NEGATIVE); LEUKOCYTE ESTERASE ,URINE Moderate (NEGATIVE); NITRATE,URINE Negative (NEGATIVE); OCCULT BLOOD,URINE Small (NEGATIVE); PH,URINE 6.5 (5.0-8.0); PROTEIN,URINE 300 mg/dL (NEGATIVE)
[2019-08-26 02:59] LABS: BACTERIA,URINE Many /HPF (None Seen); RBC,URINE None Seen /HPF (0-1); WBC,URINE TNTC /HPF (0-1)
[2019-08-26 03:33] VITALS: BP 147/77
[2019-08-26 04:10] LABS: HEMATOCRIT 29.9 % (36-48); MEAN CORPUSCULAR HGB CONC 33.4 g/dL (32.0-36.0); MEAN CORPUSCULAR VOLUME 89.7 fL (79-99); NUCLEATED RED BLOOD CELLS 0.1 % (0.0-0.19); PLATELET COUNT (AUTO) 121 K/uL (130-400); RED BLOOD CELL COUNT(AUTO) 3.33 MIL/uL (4.00-5.50); RED CELL DISTRIBUTION WIDTH 16.4 % (11.0-15.5); WHITE BLOOD COUNT (AUTO) 5.6 K/uL (4.8-10.8)
[2019-08-26 04:17] LABS: CREATININE 1.3 mg/dL (0.5-1.5); MAGNESIUM 1.6 mg/dL (1.80-2.40); POTASSIUM 4.6 mmol/L (3.5-5.1)
[2019-08-26 04:27] LABS: BASOPHILS % (MANUAL) 2 % (0-2); EOSINOPHILS % (MANUAL) 4 % (1-6); LYMPHOCYTES % (MANUAL) 20 % (22-44); MAN.DIFF COMMENT-IMPRESSION MANUAL DIFFERENTIAL; MONOCYTES % (MANUAL) 4 % (2-9); PLATELET MORPHOLOGY COMMENT ADEQUATE; SEGMENTED NEUTROPHILS % 70 % (40-70)
[2019-08-26] MEDS: INSULIN R PO SS1 SQ SCH ×4 (05:39→22:27)
[2019-08-26] MEDS: PANTOPRAZOLE SODIUM 40 MG TABLET.DR PO SCH (06:34)
--- NOTE | 2019-08-26 07:30 | NUR ---
ENCOUNTERED PATIENT ON BED WITH NO C/O PAIN NOR SHORTNESS OF BREATH. FULL ASSESSMENT DONE. AWAITING LEXISCAN RESULTS. CALL LIGHT WITHIN REACH.
[2019-08-26 07:38] VITALS: BP 158/92
[2019-08-26] MEDS: FUROSEMIDE 40 MG TABLET PO SCH ×2 (08:12→16:32)
[2019-08-26] MEDS: ASPIRIN 81 MG EC TAB PO SCH (08:12)
[2019-08-26 11:00] VITALS: BP 147/75
[2019-08-26] MEDS ORDERED: INSU100I35 SQ (11:52)
[2019-08-26] MEDS ORDERED: INSU3INS5 SQ ×2 (11:52→11:54)
--- NOTE | 2019-08-26 14:09 | NUR ---
RELAYED RAGHAV SCAN RESULTS TO DR. BIGGS. ORDERED FOR CARDIOLOGY CONSULT. IF CARDIO CLEARS PATIENT FOR D/C TODAY, MAY SEND PATIENT HOME AND JUST F/U WITH CARDIO.
--- NOTE | 2019-08-26 14:11 | NUR ---
CALLED IN NEW CONSULT TO [facility]. SPOKE WITH CYNDEE.
--- NOTE | 2019-08-26 14:58 | NUR ---
DR. LAO IS IN TO SEE PATIENT.
[2019-08-26 15:34] VITALS: BP 137/77
--- NOTE | 2019-08-26 15:44 | NUR ---
TEACH BACK METHOD UTILIZED TO EDUCATE PATIENT ON IMPORTANCE OF STRICT INTAKE AND OUTPUT MONITORING. NUNS CAP IN PLACE.
[2019-08-26] MEDS ORDERED: MAGNESIUM 2GM PREMIX 50ML 50 ML IV ONE ×2 (16:27→16:30)
[2019-08-26 19:06] VITALS: BP 145/89
[2019-08-26] MEDS: IRON SUCROSE COMPLEX 100 MG in SODIUM CHLORIDE 0.9% 50 ML IV SCH (20:14)
[2019-08-26] MEDS: AMLODIPINE BESYLATE 5 MG TAB PO SCH (20:14)
[2019-08-26] MEDS: CARVEDILOL 6.25 MG TABLET PO SCH (20:14)
[2019-08-26] MEDS ORDERED: ATORVASTATIN CALCIUM 10 MG TABLET PO SCH (21:00)
[2019-08-26 23:06] VITALS: BP 167/86
[2019-08-27] VITALS (12 sets, daily range): BP systolic 101–158; BP diastolic 37–86
[2019-08-27 03:29] LABS: MEAN CORPUSCULAR HEMOGLOBIN 30.1 pg (27.0-33.0); MEAN CORPUSCULAR HGB CONC 33.9 g/dL (32.0-36.0); MEAN CORPUSCULAR VOLUME 88.7 fL (79-99); NUCLEATED RED BLOOD CELLS 0.1 % (0.0-0.19); PLATELET COUNT (AUTO) 121 K/uL (130-400); RED BLOOD CELL COUNT(AUTO) 3.27 MIL/uL (4.00-5.50); RED CELL DISTRIBUTION WIDTH 16.4 % (11.0-15.5); WHITE BLOOD COUNT (AUTO) 5.1 K/uL (4.8-10.8)
[2019-08-27 03:34] LABS: CREATININE 1.4 mg/dL (0.5-1.5); MAGNESIUM 1.9 mg/dL (1.80-2.40); POTASSIUM 4.6 mmol/L (3.5-5.1)
[2019-08-27] MEDS: PANTOPRAZOLE SODIUM 40 MG TABLET.DR PO SCH (03:34)
[2019-08-27 03:53] LABS: INR 0.97 (0.85-1.15); PARTIAL THROMBOPLASTIN TIME 27.1 SEC (26.3-35.5); PROTHROMBIN TIME 10.2 SEC (9.6-11.6)
[2019-08-27] MEDS: INSULIN R PO SS1 SQ SCH ×3 (06:31→16:30)
[2019-08-27] MEDS ORDERED: HEPARIN SODIUM 1000UNIT/ML 10ML VIAL ONE (07:11)
[2019-08-27] MEDS ORDERED: IOHEXOL 350 MG/ML 100ML INFUS..BTL IV ONE (07:11)
[2019-08-27] MEDS ORDERED: NITROGLYCERIN 5 MG/ML 10 ML VIAL IV ONE (07:11)
[2019-08-27] MEDS ORDERED: IOHEXOL-350 50ML VIAL IV ONE ×2 (07:11→08:23)
[2019-08-27] MEDS ORDERED: LIDOCAINE HCL 2% 20ML ONE (07:12)
[2019-08-27] MEDS ORDERED: FENTANYL CITRATE PF 50 MCG/1 ML 2ML VIAL ONE (08:00)
[2019-08-27] MEDS ORDERED: MIDAZOLAM HCL 1 MG/ML 2ML VIAL ONE (08:00)
[2019-08-27] MEDS ORDERED: HYDRALAZINE HCL 20 MG/ML VIAL ONE (08:33)
[2019-08-27] MEDS ORDERED: LABETALOL HCL 5 MG/ML 20ML VIAL IV ONE (08:40)
[2019-08-27] MEDS: ASPIRIN 81 MG EC TAB PO SCH ×2 (09:00→12:05)
[2019-08-27] MEDS: CARVEDILOL 6.25 MG TABLET PO SCH ×2 (09:00→13:42)
[2019-08-27] MEDS: FUROSEMIDE 40 MG TABLET PO SCH ×2 (09:00→12:05)
[2019-08-27] MEDS: AMLODIPINE BESYLATE 5 MG TAB PO SCH ×2 (09:00→13:41)
--- NOTE | 2019-08-27 09:15 | NUR ---
RETURNED FROM TECHNICAL ACCOUNT EXECUTIVE VIA BED. AAOX3, RESP.'S EVEN AND UNLABORED. DENIES ANY C/O SOB, DENIES ANY CURRENT PAIN. INSTRUCTED ON STRICT BR PER MD ORDERS, VERBALIZED UNDERSTANDING. RIGHT GROIN WITH LIGHT DRSG IN PLACE, D/I; AREA SOFT, NO ECCHYMOSIS OR HEMATOMA NOTED. FEET WARM BILATERALLY. PP'S (+). PLACED IN REVERSE [place] POSITION FOR COMFORT. CALL LIGHT WITHIN REACH, VERBALIZED ABILITY TO USE. MULTIPLE FAMILY MEMBERS AT BEDSIDE.
--- NOTE | 2019-08-27 10:00 | NUR ---
DR. ARIAS IN ROOM SPEAKING WITH PT. AND DAUGHTER AT BEDSIDE RE:C AND FINDINGS. DR. ARIAS ALSO INFORMED PT. RE:MEDICATION REGIMEN COMPLIANCE AND DIETARY MODIFICATIONS FOR CAD AND CHF, PT. VERBALIZED UNDERSTANDING. QUESTIONS ANSWERED BY DR. ARIAS.
--- NOTE | 2019-08-27 13:20 | NUR ---
BR COMPLETED. RIGHT GROIN SOFT, NO HEMATOMA. ALLOWED OOB TO RESTROOM, ASSISTED BY THIS NURSE. STEADY GAIT NOTED.
--- NOTE | 2019-08-27 14:46 | NUR ---
DR. BIGGS IN ROOM SPEAKING WITH PT. AND PT.'S DAUGHTER AT BEDSIDE RE:DISCHARGE DISPOSITION. QUESTIONS ANSWERED BY DR. BIGGS.
[2019-08-27] MEDS ORDERED: CARV6.2579 PO (14:55)
[2019-08-27] MEDS ORDERED: AMLO5TAB4 PO (14:55)
--- NOTE | 2019-08-27 16:35 | NUR ---
HL REMOVED, CATHETER INTACT. DISCHARGE INSTRUCTIONS GIVEN, PT. AND DAUGHTER AT BEDSIDE VERBALIZED MUTUAL UNDERSTANDING.
== END 2019-08-27 16:51 | disposition home or self-care (01) | DRG 287 ==
LOC: EDH 04:16 → EDHIP 08:25 → 2AH 18:05
PROVIDERS: ADMIT Internal Medicine Nephrology; ATTEND Internal Medicine Nephrology
PROC: B2111ZZ Fluoroscopy of Multiple Coronary Arteries using Low Osmolar Contrast (ICD-10-PCS; principal; 2019-08-27)
PROC: B2131ZZ Fluoroscopy of Multiple Coronary Artery Bypass Grafts using Low Osmolar Contrast (ICD-10-PCS; 2019-08-27)
PROC: B2181ZZ Fluoroscopy of Left Internal Mammary Bypass Graft using Low Osmolar Contrast (ICD-10-PCS; 2019-08-27)
PROC: 4A023N7 Measurement of Cardiac Sampling and Pressure, Left Heart, Percutaneous Approach (ICD-10-PCS; 2019-08-27)
DX: I11.0 Hypertensive heart disease with heart failure (principal); Z68.42 Body mass index [BMI] 45.0-49.9, adult; I25.10 Atherosclerotic heart disease of native coronary artery without angina pectoris; I50.43 Acute on chronic combined systolic (congestive) and diastolic (congestive) heart failure; E87.5 Hyperkalemia; I42.8 Other cardiomyopathies; F10.10 Alcohol abuse, uncomplicated; E11.21 Type 2 diabetes mellitus with diabetic nephropathy; E11.51 Type 2 diabetes mellitus with diabetic peripheral angiopathy without gangrene; I25.5 Ischemic cardiomyopathy; D50.9 Iron deficiency anemia, unspecified; D69.6 Thrombocytopenia, unspecified; E66.01 Morbid (severe) obesity due to excess calories; E78.5 Hyperlipidemia, unspecified; G47.10 Hypersomnia, unspecified; G47.30 Sleep apnea, unspecified; Z87.442 Personal history of urinary calculi; Z91.14 Patient's other noncompliance with medication regimen; Z95.1 Presence of aortocoronary bypass graft; Z87.891 Personal history of nicotine dependence
CPT/HCPCS: 36415; 71045; 78452; 80048; 80053; 80061; 81001; 82550; 82728; 82948; 83036; 83540; 83550; 83690; 83735; 83880; 84100; 84132; 84443; 84484; 84550; 85025; 85027; 85610; 85730; 93005; 93017; 93306; 93459; 93970; 94640; 96374; 99156; 99157; 99291; A9500; C1769; C1894; C9113; G0378; J0360; J0610; J1644; J1756; J1815; J1940; J2250; J2785; J3010; J3475; J3490; J7070; Q9967

== ENCOUNTER 2020-03-28 10:10 | Inpatient (IN) | payer MEDICARE ==
[~2020-03-28] VITALS: Ht 167.6 cm; Wt 126.5 kg
[~2020-03-28 10:10] MED LIST changes: +AMLO5TAB4 PO; -ASPI-1181 PO; +ASPI-1443 PO; +BENZ200C53 PO; +CARV6.2579 PO; +DIPH25TA51 PO; -INSU100I13 SQ; +INSU3INS5 SQ; +MELA1TAB21 PO; -METO-409 PO; +NITR0.4T50 SL
[2020-03-28 10:38] LABS: BASOPHILS % (AUTO) 0.7 % (0.0-5.0); EOSINOPHILS % (AUTO) 5.3 % (0.0-8.0); HEMATOCRIT 27.3 % (36-48); LYMPHOCYTES % (AUTO) 18.7 % (21.0-51.0); MEAN CORPUSCULAR HEMOGLOBIN 28.6 pg (27.0-33.0); MEAN CORPUSCULAR HGB CONC 30.4 g/dL (32.0-36.0); MEAN CORPUSCULAR VOLUME 94.1 fL (79-99); MONOCYTES % (AUTO) 7.2 % (3.0-13.0); NEUTROPHILS % (AUTO) 67.6 % (40.0-77.0); NUCLEATED RED BLOOD CELLS 0.3 % (0.0-0.19); PLATELET COUNT (AUTO) 163 K/uL (130-400); RED CELL DISTRIBUTION WIDTH 16.1 % (11.0-15.5); WHITE BLOOD COUNT (AUTO) 5.8 K/uL (4.8-10.8)
[2020-03-28 10:44] LABS: CREATININE 1.4 mg/dL (0.5-1.5); POTASSIUM 5.2 mmol/L (3.5-5.1)
[2020-03-28 10:49] LABS: ALBUMIN 3.3 g/dL (3.5-5.0); BILIRUBIN,TOTAL 0.6 mg/dL (0.2-1.0)
[2020-03-28 10:58] LABS: INR 1.01 (0.85-1.15); PARTIAL THROMBOPLASTIN TIME 26.1 SEC (26.3-35.5); PROTHROMBIN TIME 10.9 SEC (9.6-11.6)
[2020-03-28 11:07] LABS: B-TYPE NATRIURETIC PEPTIDE 650 pg/mL (0-100)
[2020-03-28] MEDS ORDERED: ASPIRIN 325 MG TABLET ONE (12:21)
[2020-03-28] MEDS ORDERED: FUROSEMIDE 10 MG/ML 4ML VIAL ONE (12:22)
[2020-03-28 13:27] LABS: RETICULOCYTE % (AUTO) 6.55 % (0.42-2.23)
[2020-03-28] MEDS ORDERED: DEXTROSE 50%-WATER 50 ML DISP.SYRIN IV PRN (13:30)
[2020-03-28] MEDS ORDERED: GLUCAGON 1MG KIT 1 MG ML IM PRN (13:30)
[2020-03-28 20:20] VITALS: BP 144/75
[2020-03-28] MEDS ORDERED: AMLO5TAB4 PO (21:04)
[2020-03-28] MEDS ORDERED: FURO40TA5 PO (21:07)
[2020-03-28] MEDS: FUROSEMIDE 10 MG/ML 4ML VIAL IVP SCH (22:03)
[2020-03-28] MEDS: INSULIN R PO SS1 SQ SCH (22:10)
[2020-03-28 23:20] VITALS: BP_SYST 115; BP_SYST 128; BP_DIAS 60; BP_DIAS 62
[2020-03-29] MEDS ORDERED: ACETAMINOPHEN 325 MG TAB PO PRN
[2020-03-29] MEDS ORDERED: ONDANSETRON HCL 4 MG/2 ML VIAL IVP PRN
[2020-03-29 00:12] LABS: CREATINE KINASE, TOTAL 64 U/L (21-232); MYOGLOBIN 61 ng/mL (10-92); TROPONIN I < 0.04 ng/mL (0.00-0.06)
[2020-03-29 00:24] LABS: APPEARANCE,URINE Clear (CLEAR); BILIRUBIN,URINE Negative (NEGATIVE); COLOR,URINE Yellow (YELLOW); GLUCOSE, URINE (UA) Negative (NEGATIVE); KETONES,URINE Negative (NEGATIVE); LEUKOCYTE ESTERASE ,URINE Small (NEGATIVE); NITRATE,URINE Negative (NEGATIVE); OCCULT BLOOD,URINE Negative (NEGATIVE); PH,URINE 5.5 (5.0-8.0); PROTEIN,URINE Trace mg/dL (NEGATIVE); UROBILINOGEN,URINE 0.2 mg/dL (0.2-1.0)
[2020-03-29 01:04] LABS: BACTERIA,URINE Many /HPF (None Seen); MUCUS,URINE Rare LPF (None Seen); RBC,URINE None Seen /HPF (0-1); SQUAMOUS EPITHELIAL CELL,UR Few /HPF (0-2)
[2020-03-29 03:42] VITALS: BP 112/50
[2020-03-29 04:54] LABS: HEMATOCRIT 24.4 % (36-48); MEAN CORPUSCULAR HEMOGLOBIN 28.6 pg (27.0-33.0); MEAN CORPUSCULAR HGB CONC 30.3 g/dL (32.0-36.0); MEAN CORPUSCULAR VOLUME 94.2 fL (79-99); NUCLEATED RED BLOOD CELLS 0.4 % (0.0-0.19); RED BLOOD CELL COUNT(AUTO) 2.59 MIL/uL (4.00-5.50); RED CELL DISTRIBUTION WIDTH 16.3 % (11.0-15.5); WHITE BLOOD COUNT (AUTO) 5.4 K/uL (4.8-10.8)
[2020-03-29 05:21] LABS: CARBON DIOXIDE 29 mmol/L (21-32); CHLORIDE 109 mmol/L (101-111); CREATINE KINASE, TOTAL 50 U/L (21-232); CREATININE 1.3 mg/dL (0.5-1.5); GLOMERULAR FILTR. RATE CALC 44 mL/min (>60); GLUCOSE,RANDOM 126 mg/dL (70-105); MYOGLOBIN 54 ng/mL (10-92); POTASSIUM 4.9 mmol/L (3.5-5.1); SODIUM SERUM 142 mmol/L (136-145); TROPONIN I < 0.04 ng/mL (0.00-0.06); UREA NITROGEN, BLOOD 38 mg/dL (7-18)
[2020-03-29 05:26] LABS: % IRON SATURATION 16.2 % (22-44)
[2020-03-29] MEDS: INSULIN R PO SS1 SQ SCH ×4 (06:11→21:12)
[2020-03-29 07:56] VITALS: BP 105/66
[2020-03-29] MEDS: FAMOTIDINE/PF 20 MG/2 ML VIAL IV SCH (08:22)
[2020-03-29] MEDS: FUROSEMIDE 10 MG/ML 4ML VIAL IVP SCH ×2 (08:22→21:07)
--- NOTE | 2020-03-29 10:06 | NUR ---
DCP: HOME Sw met with pt who states her daughter Sharee Matt [phone] lives with her. Pt on SSD, has provider 5hrs M-F thru [facility] to assist with ADLs, and home management, has Walker, shower chair and inhalers. Drives at times, if not family transports. PCP is Dr Szymanski and pt uses [facility] for rx. Pt denies dc needs and wants to return home [place]. Daughter Lisette Rodrigues [phone] also ER contact Addendum: 03/29/20 at 1010 by SATISH MARKS Amended: Links added.
[2020-03-29 11:02] VITALS: BP 128/53
[2020-03-29] MEDS ORDERED: COMPOUND IV MISC 1 EACH IVSOLN MISC PRN (12:45)
[2020-03-29] MEDS: IRON SUCROSE COMPLEX 100 MG in SODIUM CHLORIDE 0.9% 50 ML IV SCH (13:02)
[2020-03-29 16:32] VITALS: BP 135/72
[2020-03-29 19:17] VITALS: BP 135/69
[2020-03-29 23:11] VITALS: BP 117/46
[2020-03-30 03:12] VITALS: BP 146/69
[2020-03-30 04:14] LABS: BASOPHILS % (AUTO) 0.4 % (0.0-5.0); EOSINOPHILS % (AUTO) 4.2 % (0.0-8.0); HEMATOCRIT 26.1 % (36-48); LYMPHOCYTES % (AUTO) 24.3 % (21.0-51.0); MEAN CORPUSCULAR HEMOGLOBIN 28.2 pg (27.0-33.0); MEAN CORPUSCULAR HGB CONC 29.9 g/dL (32.0-36.0); MEAN CORPUSCULAR VOLUME 94.2 fL (79-99); MONOCYTES % (AUTO) 7.9 % (3.0-13.0); NEUTROPHILS % (AUTO) 62.8 % (40.0-77.0); PLATELET COUNT (AUTO) 137 K/uL (130-400); RED BLOOD CELL COUNT(AUTO) 2.77 MIL/uL (4.00-5.50); RED CELL DISTRIBUTION WIDTH 16.2 % (11.0-15.5); WHITE BLOOD COUNT (AUTO) 5.2 K/uL (4.8-10.8)
[2020-03-30 04:25] LABS: HEMOGLOBIN A1C 7.1 % (4.0-6.0)
[2020-03-30 04:38] LABS: CREATININE 1.5 mg/dL (0.5-1.5); POTASSIUM 4.9 mmol/L (3.5-5.1)
[2020-03-30] MEDS: INSULIN R PO SS1 SQ SCH ×4 (06:46→21:00)
[2020-03-30 08:07] VITALS: BP 165/81
[2020-03-30] MEDS: FAMOTIDINE/PF 20 MG/2 ML VIAL IV SCH (09:04)
[2020-03-30] MEDS: FUROSEMIDE 10 MG/ML 4ML VIAL IVP SCH ×2 (09:07→20:18)
[2020-03-30] MEDS: IRON SUCROSE COMPLEX 100 MG in SODIUM CHLORIDE 0.9% 50 ML IV SCH (10:53)
[2020-03-30 11:19] VITALS: BP 143/77
[2020-03-30] MEDS ORDERED: FUROSEMIDE 10 MG/ML 4ML VIAL IV SCH (15:00)
[2020-03-30] MEDS ORDERED: IRON SUCROSE COMPLEX 200 MG in SODIUM CHLORIDE 0.9% 50 ML IV ONE (15:00)
[2020-03-30] MEDS: CEFTRIAXONE SODIUM 1 GM IVP SCH (15:04)
--- NOTE | 2020-03-30 15:22 | NUR ---
RD NOTIFICATION Pt admitted with Respiratory distress. PMH DM, CKD, HTN, CAD, CABG. Pt with improved PO intake (100%). CBW <200% IBW. Noted A1C 7.1%. Recommend continue Heart Healthy, 75gm CC diet order RD follow up with Nutrition education RD to continue to monitor. Please notify as additional nutrition concerns arise. thank you. Addendum: 03/30/20 at [address] RD Amended: Links added.
[2020-03-30 16:37] VITALS: BP 128/63
[2020-03-30 20:00] VITALS: BP 132/62
[2020-03-31] VITALS (8 sets, daily range): BP systolic 129–151; BP diastolic 53–90
[2020-03-31 04:03] LABS: BASOPHILS % (AUTO) 0.5 % (0.0-5.0); EOSINOPHILS % (AUTO) 6.2 % (0.0-8.0); HEMATOCRIT 27.3 % (36-48); LYMPHOCYTES % (AUTO) 26.7 % (21.0-51.0); MEAN CORPUSCULAR HEMOGLOBIN 28.8 pg (27.0-33.0); MEAN CORPUSCULAR HGB CONC 31.1 g/dL (32.0-36.0); MEAN CORPUSCULAR VOLUME 92.5 fL (79-99); MONOCYTES % (AUTO) 10.5 % (3.0-13.0); NEUTROPHILS % (AUTO) 55.7 % (40.0-77.0); PLATELET COUNT (AUTO) 142 K/uL (130-400); RED BLOOD CELL COUNT(AUTO) 2.95 MIL/uL (4.00-5.50); RED CELL DISTRIBUTION WIDTH 16.1 % (11.0-15.5); WHITE BLOOD COUNT (AUTO) 5.5 K/uL (4.8-10.8)
[2020-03-31 04:16] LABS: CREATININE 1.2 mg/dL (0.5-1.5); POTASSIUM 4.5 mmol/L (3.5-5.1)
[2020-03-31] MEDS: INSULIN R PO SS1 SQ SCH ×4 (07:30→20:46)
[2020-03-31] MEDS ORDERED: IRON SUCROSE COMPLEX 300 MG in SODIUM CHLORIDE 0.9% 250 ML IV ONE (09:00)
[2020-03-31] MEDS: FAMOTIDINE/PF 20 MG/2 ML VIAL IV SCH (10:19)
[2020-03-31] MEDS: FUROSEMIDE 10 MG/ML 4ML VIAL IVP SCH ×2 (10:20→20:44)
[2020-03-31] MEDS ORDERED: COMPOUND IV MISC 1 EACH IVSOLN MISC PRN (14:30)
[2020-03-31] MEDS: CEFTRIAXONE SODIUM 1 GM IVP SCH (15:36)
[2020-03-31] MEDS: FUROSEMIDE 10 MG/ML 4ML VIAL IV SCH ×2 (15:37→20:44)
[2020-04-01 03:48] VITALS: BP 135/69
--- NOTE | 2020-04-01 05:20 | NUR ---
ROUNDS UNEVENTFUL NIGHT. NO CHANGE IN PT CONDITION. PT IN BED RESTING. DOOR OPEN FOR CONTINUOUS MONITORING. TELEMETRY READING SINUS 78
[2020-04-01] MEDS: INSULIN R PO SS1 SQ SCH ×4 (05:31→21:56)
[2020-04-01 05:35] LABS: BASOPHILS % (AUTO) 0.5 % (0.0-5.0); LYMPHOCYTES % (AUTO) 25.6 % (21.0-51.0); MEAN CORPUSCULAR HEMOGLOBIN 28.5 pg (27.0-33.0); MEAN CORPUSCULAR HGB CONC 30.7 g/dL (32.0-36.0); MEAN CORPUSCULAR VOLUME 92.9 fL (79-99); MONOCYTES % (AUTO) 11.9 % (3.0-13.0); NEUTROPHILS % (AUTO) 53.5 % (40.0-77.0); PLATELET COUNT (AUTO) 147 K/uL (130-400); RED BLOOD CELL COUNT(AUTO) 3.23 MIL/uL (4.00-5.50); WHITE BLOOD COUNT (AUTO) 5.9 K/uL (4.8-10.8)
[2020-04-01 05:48] LABS: CREATININE 1.4 mg/dL (0.5-1.5); POTASSIUM 4.1 mmol/L (3.5-5.1)
[2020-04-01] MEDS: FUROSEMIDE 10 MG/ML 4ML VIAL IV SCH ×2 (07:43)
[2020-04-01 08:00] VITALS: BP 139/72
[2020-04-01] MEDS ORDERED: IRON SUCROSE COMPLEX 300 MG in SODIUM CHLORIDE 0.9% 250 ML IV SCH (09:00)
[2020-04-01] MEDS: FAMOTIDINE/PF 20 MG/2 ML VIAL IV SCH (09:02)
[2020-04-01] MEDS: FUROSEMIDE 10 MG/ML 4ML VIAL IVP SCH ×2 (09:03→21:50)
[2020-04-01 12:00] VITALS: BP 130/71
[2020-04-01] MEDS: CEFTRIAXONE SODIUM 1 GM IVP SCH (12:41)
[2020-04-01 16:00] VITALS: BP 123/78
[2020-04-01 19:00] VITALS: BP 151/84
[2020-04-02] VITALS: BP 147/77
[2020-04-02 03:38] VITALS: BP 127/62
[2020-04-02] MEDS: INSULIN R PO SS1 SQ SCH ×2 (06:36→12:02)
[2020-04-02 08:00] VITALS: BP 138/79
[2020-04-02] MEDS: FAMOTIDINE/PF 20 MG/2 ML VIAL IV SCH (09:40)
[2020-04-02] MEDS: FUROSEMIDE 10 MG/ML 4ML VIAL IVP SCH (09:40)
--- NOTE | 2020-04-02 10:00 | NUR ---
CM NOTE MET with patient and states that [facility] has delivered to home o2 to her home, and her daughters were instructed on use of portable tanks, and concentrator. daughter will bring portable to hospital. when discharged. called [facility] and states 02 setup was delivered to pt's home.
[2020-04-02 12:00] VITALS: BP 136/71
[2020-04-02] MEDS: FUROSEMIDE 10 MG/ML 4ML VIAL IV SCH (12:02)
--- NOTE | 2020-04-02 13:04 | NUR ---
PT STATED UNDERSTANDING OF ALL D/C INSTRUCTIONS ON AFTER CARE FOR HEART FAILURE AND HOME OXYGEN USE; THE SW HAS ARRANGED FOR HOME OXYGEN AND IT HAS BEEN DELIVERED PT STATES; HER DAUGHTER IS BRINGING THE PORTABLE OXYGEN TANK WITH HER FOR ASPHALT SPREADER; SHE STATES SHE ALREADY HAS A APPOINTMENT WITH HER PCP DR ROSS IN [place] THIS FRIDAY FOR FOLLOW UP; SHE ALSO STATES SHE UNDERSTANDS IMPORTANCE OF NEEDING TO TAKE HER HOME MEDICATIONS ORDERED---SHE HAD NOT BEEN TAKING HER LASIX TWICE A DAY ORDERED; PT INSTRUCTED TO RETURN TO ED FOR RETURN OF SYMPTOMS OF SOB OR OTHER DIFFICULTIES. IV ACCESS REMOVED, TELEMETRY REMOVED.
== END 2020-04-02 13:37 | disposition home or self-care (01) | DRG 291 ==
LOC: EDH 10:10 → EDHIP 13:03 → 3CH 20:13
PROVIDERS: ADMIT Internal Medicine Nephrology; ATTEND Internal Medicine Nephrology
DX: I13.0 Hypertensive heart and chronic kidney disease with heart failure and stage 1 through stage 4 chronic kidney disease, or unspecified chronic kidney disease (principal); I50.31 Acute diastolic (congestive) heart failure; Z68.42 Body mass index [BMI] 45.0-49.9, adult; I42.9 Cardiomyopathy, unspecified; D64.9 Anemia, unspecified; N18.9 Chronic kidney disease, unspecified; E87.5 Hyperkalemia; I25.10 Atherosclerotic heart disease of native coronary artery without angina pectoris; E78.5 Hyperlipidemia, unspecified; E11.51 Type 2 diabetes mellitus with diabetic peripheral angiopathy without gangrene; E11.22 Type 2 diabetes mellitus with diabetic chronic kidney disease; E66.9 Obesity, unspecified; T50.995A Adverse effect of other drugs, medicaments and biological substances, initial encounter; E78.00 Pure hypercholesterolemia, unspecified; R09.02 Hypoxemia; Z89.439 Acquired absence of unspecified foot; Z95.1 Presence of aortocoronary bypass graft; Z91.19 Patient's noncompliance with other medical treatment and regimen; Y92.89 Other specified places as the place of occurrence of the external cause
CPT/HCPCS: 36415; 71045; 80048; 80053; 80061; 81001; 82270; 82550; 82607; 82728; 82948; 83036; 83540; 83550; 83874; 83880; 84484; 85025; 85027; 85610; 85730; 87077; 87088; 87186; 93005; 93306; 93356; 93970; 94760; G0378; J0696; J1756; J1815; J1940; J3490; J7050

== ENCOUNTER 2020-05-25 16:34 | Inpatient (IN) | payer MEDICARE ==
[~2020-05-25 16:34] MED LIST changes: -BENZ200C53 PO; +FURO40TA5 PO; -MELA1TAB21 PO
[2020-05-25 17:47] LABS: RAPID GROUP A STREP NEGATIVE (NEGATIVE)
[2020-05-25 18:14] LABS: BASOPHILS % (AUTO) 0.2 % (0.0-5.0); EOSINOPHILS % (AUTO) 0.5 % (0.0-8.0); HEMATOCRIT 37.4 % (36-48); LYMPHOCYTES % (AUTO) 11.8 % (21.0-51.0); MEAN CORPUSCULAR HGB CONC 32.9 g/dL (32.0-36.0); MEAN CORPUSCULAR VOLUME 88.2 fL (79-99); MONOCYTES % (AUTO) 6.2 % (3.0-13.0); PLATELET COUNT (AUTO) 116 K/uL (130-400); RED BLOOD CELL COUNT(AUTO) 4.24 MIL/uL (4.00-5.50); RED CELL DISTRIBUTION WIDTH 13.4 % (11.0-15.5); WHITE BLOOD COUNT (AUTO) 6.6 K/uL (4.8-10.8)
[2020-05-25 18:26] LABS: INR 0.92 (0.85-1.15)
[2020-05-25 18:29] LABS: CARBON DIOXIDE 26 mmol/L (21-32); CHLORIDE 102 mmol/L (101-111); CREATININE 1.7 mg/dL (0.5-1.5); GLOMERULAR FILTR. RATE CALC 32 mL/min (>60); GLUCOSE,RANDOM 137 mg/dL (70-105); POTASSIUM 4.5 mmol/L (3.5-5.1); SODIUM SERUM 138 mmol/L (136-145); UREA NITROGEN, BLOOD 40 mg/dL (7-18)
[2020-05-25 18:40] LABS: ALANINE AMINOTRANSFERASE 12 U/L (12-78); ALBUMIN 3.4 g/dL (3.5-5.0); ASPARTATE AMINOTRANSFERASE 22 U/L (10-37); BILIRUBIN,TOTAL 0.3 mg/dL (0.2-1.0); CREATINE KINASE, TOTAL 93 U/L (21-232); MYOGLOBIN 96 ng/mL (10-92); TOTAL PROTEIN, SERUM 7.4 g/dL (6.0-8.3); TROPONIN I < 0.04 ng/mL (0.00-0.06)
[2020-05-25] MEDS ORDERED: ACETAMINOPHEN 325 MG TAB ONE (19:51)
[2020-05-25 20:28] LABS: APPEARANCE,URINE Cloudy (CLEAR); BILIRUBIN,URINE Negative (NEGATIVE); COLOR,URINE Yellow (YELLOW); GLUCOSE, URINE (UA) Negative (NEGATIVE); KETONES,URINE Negative (NEGATIVE); LEUKOCYTE ESTERASE ,URINE Small (NEGATIVE); NITRATE,URINE Negative (NEGATIVE); OCCULT BLOOD,URINE Small (NEGATIVE); PROTEIN,URINE 300 mg/dL (NEGATIVE); UROBILINOGEN,URINE 0.2 mg/dL (0.2-1.0)
[2020-05-25] MEDS ORDERED: ENOXAPARIN SODIUM 120 MG/0.8ML SQ SCH (20:45)
[2020-05-25] MEDS ORDERED: CEFTRIAXONE SODIUM 1 GM IVP SCH (21:00)
[2020-05-25] MEDS ORDERED: ONDANSETRON HCL 4 MG/2 ML VIAL IVP PRN (21:00)
[2020-05-25] MEDS ORDERED: AZITHROMYCIN 500MG+NS 250ML 250 ML IV SCH (21:00)
[2020-05-25] MEDS ORDERED: PHARMACY COMMUNICATION MISC SCH (21:00)
[2020-05-25] MEDS ORDERED: INSULIN R PO SS1 SQ SCH (21:00)
[2020-05-25] MEDS ORDERED: FAMOTIDINE/PF 20 MG/2 ML VIAL IV SCH (21:00)
[2020-05-25] MEDS ORDERED: GLUCAGON 1MG KIT 1 MG ML IM PRN (21:00)
[2020-05-25] MEDS ORDERED: ALBUTEROL INHALER 90MCG/INH IH PRN (21:00)
[2020-05-25] MEDS ORDERED: ACETAMINOPHEN 325 MG TAB PO PRN (21:00)
[2020-05-25] MEDS ORDERED: DEXTROSE 50%-WATER 50 ML DISP.SYRIN IV PRN (21:00)
[2020-05-25 21:38] LABS: BACTERIA,URINE Many /HPF (None Seen); RBC,URINE None Seen /HPF (0-1); SQUAMOUS EPITHELIAL CELL,UR 0-2 /HPF (0-2)
[2020-05-25] MEDS ORDERED: CEFTRIAXONE SODIUM 1 GM ONE (22:46)
[2020-05-25] MEDS ORDERED: AZITHROMYCIN 500MG+NS 250ML 250 ML IV ONE (22:46)
[2020-05-25] MEDS ORDERED: PANTOPRAZOLE SODIUM 40 MG TABLET.DR ONE (22:47)
== END 2020-05-26 04:39 | disposition left against medical advice (07) | DRG 178 ==
LOC: EDH 16:34 → EDHIP 20:00
PROVIDERS: ADMIT Internal Medicine Nephrology; ATTEND Internal Medicine Nephrology
DX: U07.1 COVID-19 (principal); N17.9 Acute kidney failure, unspecified; E87.70 Fluid overload, unspecified; E11.51 Type 2 diabetes mellitus with diabetic peripheral angiopathy without gangrene; I25.10 Atherosclerotic heart disease of native coronary artery without angina pectoris; N18.9 Chronic kidney disease, unspecified; E11.22 Type 2 diabetes mellitus with diabetic chronic kidney disease; D64.9 Anemia, unspecified; I12.9 Hypertensive chronic kidney disease with stage 1 through stage 4 chronic kidney disease, or unspecified chronic kidney disease; Z89.439 Acquired absence of unspecified foot; Z95.1 Presence of aortocoronary bypass graft; Z87.891 Personal history of nicotine dependence; Z87.442 Personal history of urinary calculi; Z91.19 Patient's noncompliance with other medical treatment and regimen
CPT/HCPCS: 36415; 71045; 80053; 81001; 82550; 82728; 83605; 83874; 84145; 84484; 85025; 85610; 85730; 87040; 87077; 87088; 87186; 87804; 87880; 93005; G0378; J0456; J0696; J1650; U0003

== ENCOUNTER → 2021-05-03 | Outpatient (CLI) | payer MEDICARE | END | disposition home or self-care (01) | LOC: SHCH 09:48 | PROVIDERS: ATTEND Internal Medicine Cardiovascular Disease | DX: I87.2 Venous insufficiency (chronic) (peripheral) (principal); I70.239 Atherosclerosis of native arteries of right leg with ulceration of unspecified site | CPT/HCPCS: 93925; 93970 ==

== ENCOUNTER 2022-02-18 21:48 | Observation (INO) | payer MEDICARE ==
[~2022-02-18] VITALS: Ht 167.6 cm; Wt 130.9 kg
[2022-02-18] MEDS ORDERED: LIDOCAINE HCL 2% VISCOUS 15 ML UDCUP PO ONE (23:00)
[2022-02-18] MEDS ORDERED: NITROGLYCERIN 1GM OINT 1 INCH/1GM TD ONE (23:00)
[2022-02-18] MEDS ORDERED: ASPIRIN 325MG EC TAB PO ONE (23:00)
[2022-02-18] MEDS ORDERED: ONDANSETRON 4MG INJ IVP ONE (23:00)
[2022-02-18] MEDS ORDERED: MAG/ALUM/SIMETH 30 ML UDCUP PO ONE (23:00)
[2022-02-18] MEDS ORDERED: PANTOPRAZOLE 40 MG/VIAL IVP ONE (23:00)
[2022-02-18] MEDS ORDERED: FAMOTIDINE 20MG VIAL IV ONE (23:00)
[2022-02-18 23:12] LABS: BASOPHILS % (AUTO) 0.7 % (0.0-5.0); EOSINOPHILS % (AUTO) 5.1 % (0.0-8.0); HEMATOCRIT 33.7 % (36-48); LYMPHOCYTES % (AUTO) 22.2 % (21.0-51.0); MEAN CORPUSCULAR HEMOGLOBIN 29.4 pg (27.0-33.0); MEAN CORPUSCULAR HGB CONC 32.3 g/dL (32.0-36.0); MEAN CORPUSCULAR VOLUME 90.8 fL (79-99); MONOCYTES % (AUTO) 9.6 % (3.0-13.0); NEUTROPHILS % (AUTO) 62.2 % (40.0-77.0); PLATELET COUNT (AUTO) 141 K/uL (130-400); RED BLOOD CELL COUNT(AUTO) 3.71 MIL/uL (4.00-5.50); RED CELL DISTRIBUTION WIDTH 12.7 % (11.0-15.5); WHITE BLOOD COUNT (AUTO) 8.1 K/uL (4.8-10.8)
[2022-02-18 23:23] LABS: CREATININE 1.4 mg/dL (0.5-1.5); POTASSIUM 4.3 mmol/L (3.5-5.1)
[2022-02-18 23:29] LABS: ALBUMIN 3.1 g/dL (3.5-5.0); BILIRUBIN,TOTAL 0.4 mg/dL (0.2-1.0); TOTAL PROTEIN, SERUM 6.7 g/dL (6.0-8.3)
[2022-02-18 23:46] LABS: B-TYPE NATRIURETIC PEPTIDE 186 pg/mL (0-100)
[2022-02-19] MEDS ORDERED: ONDANSETRON 4MG INJ IV PRN (02:00)
[2022-02-19] MEDS: NITROGLYCERIN 1GM OINT 1 INCH/1GM TD SCH ×3 (02:00→17:52)
[2022-02-19] MEDS ORDERED: RIVA2.5T PO (02:59)
[2022-02-19] MEDS ORDERED: ZOLP5TAB8 PO (02:59)
[2022-02-19] MEDS ORDERED: MELA3CAP2 PO (02:59)
[2022-02-19] MEDS ORDERED: FURO40TA5 PO (02:59)
[2022-02-19] MEDS ORDERED: CARV6.25 PO (02:59)
[2022-02-19] MEDS ORDERED: AEC81 PO (03:00)
[2022-02-19] MEDS: FUROSEMIDE 40 MG TABLET PO SCH (08:10)
[2022-02-19] MEDS: ASPIRIN 81MG CHEW TAB PO SCH (08:10)
[2022-02-19] MEDS: FAMOTIDINE 20MG TAB PO SCH (08:10)
[2022-02-19] MEDS: INSULIN HUMULIN R 100 UNIT/ML 3ML SQ SCH ×4 (08:10→21:28)
[2022-02-19] MEDS: CARVEDILOL 6.25 MG TABLET PO SCH ×2 (08:10→21:08)
[2022-02-19] MEDS: RIVAROXABAN 2.5 MG TABLET PO SCH ×2 (08:11→21:08)
[2022-02-19 08:40] VITALS: BP 167/79
[2022-02-19] MEDS ORDERED: HEPARIN 5,000 UNIT VIAL SQ SCH (09:00)
[2022-02-19] MEDS ORDERED: LOSARTAN 50 MG TABLET PO SCH (09:00)
[2022-02-19 11:30] VITALS: BP 138/87
[2022-02-19 16:00] VITALS: BP 132/78
[2022-02-19] MEDS: ACETAMINOPHEN 325 MG TAB PO PRN (17:06)
[2022-02-19 18:01] LABS: APPEARANCE,URINE Clear (CLEAR); BILIRUBIN,URINE Negative (NEGATIVE); COLOR,URINE Yellow (YELLOW); GLUCOSE, URINE (UA) Negative (NEGATIVE); KETONES,URINE Negative (NEGATIVE); LEUKOCYTE ESTERASE ,URINE Small (NEGATIVE); NITRATE,URINE Negative (NEGATIVE); OCCULT BLOOD,URINE Negative (NEGATIVE); PROTEIN,URINE 300 mg/dL (NEGATIVE); UROBILINOGEN,URINE 0.2 mg/dL (0.2-1.0)
[2022-02-19 18:09] LABS: AMPHET/METH SCREEN,URINE NEGATIVE (NEGATIVE); BACTERIA,URINE Rare /HPF (None Seen); BARBITURATE SCREEN, URINE NEGATIVE (NEGATIVE); BENZODIAZEPINES SCREEN,URINE NEGATIVE (NEGATIVE); CANNABINOID SCREEN,URINE NEGATIVE (NEGATIVE); COCAINE SCREEN,URINE NEGATIVE (NEGATIVE); MUCUS,URINE Few LPF (None Seen); OPIATE SCREEN,URINE NEGATIVE (NEGATIVE); PHENCYCLIDINE SCREEN,URINE NEGATIVE (NEGATIVE); SQUAMOUS EPITHELIAL CELL,UR Rare /HPF (0-2); WBC,URINE 0-1 /HPF (0-1)
[2022-02-19 20:06] VITALS: BP 123/64
[2022-02-19 23:19] VITALS: BP 116/55
[2022-02-20] MEDS: NITROGLYCERIN 1GM OINT 1 INCH/1GM TD SCH (02:29)
[2022-02-20 03:43] VITALS: BP 97/59
[2022-02-20 05:26] LABS: BASOPHILS % (AUTO) 0.7 % (0.0-5.0); EOSINOPHILS % (AUTO) 5.8 % (0.0-8.0); HEMATOCRIT 29.5 % (36-48); LYMPHOCYTES % (AUTO) 35.8 % (21.0-51.0); MEAN CORPUSCULAR HEMOGLOBIN 29.1 pg (27.0-33.0); MEAN CORPUSCULAR HGB CONC 32.2 g/dL (32.0-36.0); MEAN CORPUSCULAR VOLUME 90.2 fL (79-99); MONOCYTES % (AUTO) 9.5 % (3.0-13.0); NEUTROPHILS % (AUTO) 47.8 % (40.0-77.0); PLATELET COUNT (AUTO) 118 K/uL (130-400); RED BLOOD CELL COUNT(AUTO) 3.27 MIL/uL (4.00-5.50); RED CELL DISTRIBUTION WIDTH 12.6 % (11.0-15.5); WHITE BLOOD COUNT (AUTO) 5.7 K/uL (4.8-10.8)
[2022-02-20 05:46] LABS: CREATININE 1.5 mg/dL (0.5-1.5); MAGNESIUM 2.2 mg/dL (1.80-2.40); PHOSPHORUS 4.3 mg/dL (2.5-4.9); POTASSIUM 4.6 mmol/L (3.5-5.1)
[2022-02-20] MEDS: INSULIN HUMULIN R 100 UNIT/ML 3ML SQ SCH ×4 (07:30→22:57)
[2022-02-20 08:00] VITALS: BP 126/69
[2022-02-20] MEDS: CARVEDILOL 6.25 MG TABLET PO SCH ×2 (10:18→20:29)
[2022-02-20] MEDS: FUROSEMIDE 40 MG TABLET PO SCH (10:19)
[2022-02-20] MEDS: ASPIRIN 81MG CHEW TAB PO SCH (10:19)
[2022-02-20] MEDS: RIVAROXABAN 2.5 MG TABLET PO SCH ×2 (10:20→20:28)
[2022-02-20] MEDS: FAMOTIDINE 20MG TAB PO SCH (10:20)
[2022-02-20 12:00] VITALS: BP 172/79
[2022-02-20] MEDS: NIFEDIPINE 10 MG CAP PO SCH ×2 (13:08→20:29)
[2022-02-20 16:00] VITALS: BP 140/70
[2022-02-20 20:00] VITALS: BP 144/73
[2022-02-20] MEDS: ACETAMINOPHEN 325 MG TAB PO PRN (20:30)
[2022-02-21] VITALS: BP 134/70
[2022-02-21 04:00] VITALS: BP 129/69
[2022-02-21] MEDS: INSULIN HUMULIN R 100 UNIT/ML 3ML SQ SCH ×2 (06:04→12:02)
[2022-02-21 08:00] VITALS: BP 157/76
[2022-02-21] MEDS: ASPIRIN 81MG CHEW TAB PO SCH (08:23)
[2022-02-21] MEDS: FUROSEMIDE 40 MG TABLET PO SCH (08:24)
[2022-02-21] MEDS: CARVEDILOL 6.25 MG TABLET PO SCH (08:25)
[2022-02-21] MEDS: RIVAROXABAN 2.5 MG TABLET PO SCH (08:25)
[2022-02-21] MEDS: FAMOTIDINE 20MG TAB PO SCH (08:25)
[2022-02-21] MEDS ORDERED: LOSA50TA2 PO (08:49)
[2022-02-21] MEDS ORDERED: NIFE-40 PO (08:49)
[2022-02-21] MEDS ORDERED: LOSARTAN 50 MG TABLET PO SCH (09:00)
[2022-02-21] MEDS ORDERED: NIFEDIPINE ER 30 MG TAB PO SCH (09:00)
[2022-02-21 12:00] VITALS: BP 163/82
[2022-02-21] MEDS: ACETAMINOPHEN 325 MG TAB PO PRN (14:45)
== END 2022-02-21 17:45 | disposition home or self-care (01) ==
LOC: EDH 21:48 → EDHIP 02-19 01:55 → 3BH 02-19 08:45
PROVIDERS: ADMIT Internal Medicine; ATTEND Internal Medicine
DX: R07.89 Other chest pain (principal); I16.0 Hypertensive urgency; I11.0 Hypertensive heart disease with heart failure; I50.9 Heart failure, unspecified; E11.65 Type 2 diabetes mellitus with hyperglycemia; E66.01 Morbid (severe) obesity due to excess calories; E78.00 Pure hypercholesterolemia, unspecified; E78.5 Hyperlipidemia, unspecified; F32.A Depression, unspecified; I25.10 Atherosclerotic heart disease of native coronary artery without angina pectoris; I73.9 Peripheral vascular disease, unspecified; Z87.891 Personal history of nicotine dependence; Z91.19 Patient's noncompliance with other medical treatment and regimen; Z95.1 Presence of aortocoronary bypass graft; Z90.49 Acquired absence of other specified parts of digestive tract; Z79.899 Other long term (current) drug therapy; Z98.890 Other specified postprocedural states; Z79.82 Long term (current) use of aspirin; Z79.4 Long term (current) use of insulin; Z68.42 Body mass index [BMI] 45.0-49.9, adult
CPT/HCPCS: 36415 ×3; 71045; 80048; 80053; 80305; 81001; 82948 ×11; 83036; 83690; 83735; 83880; 84100; 84145; 84484 ×3; 85025 ×2; 85651; 86140; 93005; 96374; 96375; 99285; C9113; G0378 ×64; J1815 ×6; J2405; J3490

== ENCOUNTER 2022-06-14 22:18 | Emergency (ER) | payer MEDICARE ==
[~2022-06-14] VITALS: Ht 167.6 cm; Wt 132.4 kg
[~2022-06-14 22:18] MED LIST changes: +AEC81 PO; -AMLO5TAB4 PO; -ASPI-1443 PO; +CARV6.25 PO; -CARV6.2579 PO; -DIPH25TA51 PO; +LOSA50TA2 PO; +MELA3CAP2 PO; +NIFE-40 PO; +RIVA2.5T PO; +ZOLP5TAB8 PO
[2022-06-14 22:37] LABS: BASOPHILS % (AUTO) 0.7 % (0.0-5.0); EOSINOPHILS % (AUTO) 6.1 % (0.0-8.0); HEMATOCRIT 33.9 % (36-48); LYMPHOCYTES % (AUTO) 29.2 % (21.0-51.0); MEAN CORPUSCULAR HEMOGLOBIN 29.8 pg (27.0-33.0); MEAN CORPUSCULAR HGB CONC 32.7 g/dL (32.0-36.0); MEAN CORPUSCULAR VOLUME 90.9 fL (79-99); MONOCYTES % (AUTO) 7.3 % (3.0-13.0); NEUTROPHILS % (AUTO) 56.5 % (40.0-77.0); PLATELET COUNT (AUTO) 137 K/uL (130-400); RED BLOOD CELL COUNT(AUTO) 3.73 MIL/uL (4.00-5.50); RED CELL DISTRIBUTION WIDTH 12.9 % (11.0-15.5); WHITE BLOOD COUNT (AUTO) 8.1 K/uL (4.8-10.8)
[2022-06-14 22:47] LABS: CREATININE 1.5 mg/dL (0.5-1.5); POTASSIUM 5.3 mmol/L (3.5-5.1)
[2022-06-14 23:53] VITALS: BP 151/64
== END 2022-06-15 00:28 | disposition home or self-care (01) ==
LOC: EDH 22:18
DX: R07.89 Other chest pain (principal); K21.00 Gastro-esophageal reflux disease with esophagitis, without bleeding; I11.0 Hypertensive heart disease with heart failure; I50.9 Heart failure, unspecified; I25.10 Atherosclerotic heart disease of native coronary artery without angina pectoris; E78.00 Pure hypercholesterolemia, unspecified; E11.9 Type 2 diabetes mellitus without complications; Z90.49 Acquired absence of other specified parts of digestive tract; Z79.899 Other long term (current) drug therapy; Z79.82 Long term (current) use of aspirin; Z79.4 Long term (current) use of insulin; Z98.890 Other specified postprocedural states
CPT/HCPCS: 36415; 71045; 80048; 84484; 85025; 93005

== ENCOUNTER 2023-07-03 09:45 | Inpatient (IN) | payer MEDICARE ==
[~2023-07-03] VITALS: Ht 167.6 cm; Wt 127.0 kg
[~2023-07-03 09:45] MED LIST changes: +AMOX-426 PO; +ASCO500T20 PO; -CARV6.25 PO; +FERR-72 PO; +FOLI0.8T43 PO; +GABA-529 PO; +LOSA100T59 PO; -LOSA50TA2 PO; -MELA3CAP2 PO; +PANT20TA18 PO; +TRAZ-185 PO
[2023-07-03 10:29] LABS: HEMATOCRIT 25.3 % (36-48); MEAN CORPUSCULAR HEMOGLOBIN 28.1 pg (27.0-33.0); MEAN CORPUSCULAR VOLUME 93.7 fL (79-99); PLATELET COUNT (AUTO) 154 K/uL (130-400); WHITE BLOOD COUNT (AUTO) 5.8 K/uL (4.8-10.8)
[2023-07-03 10:30] LABS: RAPID GROUP A STREP negative (NEGATIVE)
[2023-07-03 10:36] LABS: SARS-CoV-2, RNA, NAAT NEGATIVE SARS CoV-2 (NEGATIVE)
[2023-07-03 10:39] LABS: INFLUENZA TYPE A Negative For Type A (NEGATIVE); INFLUENZA TYPE B Negative For Type B (NEGATIVE)
[2023-07-03 10:41] LABS: CREATININE 1.5 mg/dL (0.5-1.5); POTASSIUM 5.3 mmol/L (3.5-5.1)
[2023-07-03 10:46] LABS: ALBUMIN 2.7 g/dL (3.5-5.0); BILIRUBIN,TOTAL 0.5 mg/dL (0.2-1.0)
[2023-07-03] MEDS ORDERED: FUROSEMIDE 40MG VIAL IV ONE (11:30)
[2023-07-03] MEDS ORDERED: ALPRAZOLAM 0.5 MG TABLET PO PRN (12:30)
[2023-07-03] MEDS ORDERED: HYDRALAZINE 25MG TABLET PO PRN (12:30)
[2023-07-03] MEDS ORDERED: ALBUTEROL 0.083% 2.5 MG/3 ML INH IH PRN (12:30)
[2023-07-03] MEDS ORDERED: DIPHENHYDRAMINE HCL 25 MG CAPSULE PO PRN (12:30)
[2023-07-03] MEDS ORDERED: KCL 20 MEQ ERTAB PO PRN (12:30)
[2023-07-03] MEDS ORDERED: POLYETHYLENE GLYCOL 3350 17 GM POWD.PACK PO PRN (12:30)
[2023-07-03] MEDS ORDERED: NITROGLYCERIN 0.4 MG SL TAB SL PRN (12:30)
[2023-07-03] MEDS ORDERED: DEXTROSE 50%-WATER 50 ML DISP.SYRIN IV PRN (12:30)
[2023-07-03] MEDS ORDERED: POTASSIUM CHLORIDE 10% ELIXIR 20 MEQ/15 ML UDCUP PO PRN (12:30)
[2023-07-03] MEDS ORDERED: DOCUSATE SODIUM 100 MG CAP PO PRN (12:30)
[2023-07-03] MEDS ORDERED: DiphenhydrAMINE HCL 50 MG/ML VIAL IV PRN (12:30)
[2023-07-03] MEDS ORDERED: ACETAMINOPHEN 325 MG TAB PO PRN ×2 (12:30)
[2023-07-03] MEDS ORDERED: ARTIFICAL TEARS SOL 15 ML OP PRN (12:30)
[2023-07-03] MEDS ORDERED: LOPERAMIDE HCL 2 MG CAP PO PRN (12:30)
[2023-07-03] MEDS ORDERED: BENZOCAINE/MENTH/CETYLPYRD CL 1 EACH LOZENGE MM PRN (12:30)
[2023-07-03] MEDS ORDERED: ONDANSETRON 4MG INJ IV PRN (12:30)
[2023-07-03] MEDS ORDERED: GLUCAGON 1MG KIT 1 MG ML IM PRN (12:30)
[2023-07-03] MEDS ORDERED: LACTULOSE 20 GM/30 ML UDCUP PO PRN (12:30)
[2023-07-03] MEDS: FUROSEMIDE 40MG VIAL IV SCH ×2 (12:30→21:58)
[2023-07-03] MEDS ORDERED: MAGNESIUM 2GM PREMIX 50ML 50 ML IV PRN (12:30)
[2023-07-03] MEDS ORDERED: POTASSIUM CHLORIDE 20MEQ/100ML 100 ML IV PRN ×2 (12:30)
[2023-07-03 14:15] VITALS: PULSE 90; RESP 18; O2SAT 98
[2023-07-03] MEDS ORDERED: SODIUM CHLORIDE 3% FOR INHALATION 4 ML/AMP VIAL.NEB IH ONE ×2 (15:56→17:44)
[2023-07-03] MEDS ORDERED: IPRATROPIUM/ALBUTEROL SULFATE 3 ML SOLUTION IH PRN (16:30)
[2023-07-03] MEDS: IPRATROPIUM/ALBUTEROL SULFATE 3 ML SOLUTION IH SCH (17:58)
[2023-07-03 17:59] VITALS: PULSE 96; RESP 18
[2023-07-03] MEDS ORDERED: IPRATROPIUM 0.5 MG/2.5 ML INH IH SCH (18:00)
[2023-07-03] MEDS: FAMOTIDINE 20MG VIAL IV SCH (21:57)
[2023-07-03] MEDS: ENOXAPARIN SODIUM 30 MG/0.3 ML SQ SCH (21:58)
[2023-07-03] MEDS: GUAIFENESIN SUGAR-FREE 100 MG/5 ML UDCUP PO PRN (21:58)
[2023-07-03 23:00] VITALS: BP 129/77; PULSE 101; RESP 19
[2023-07-03 23:08] VITALS: O2SAT 97
[2023-07-04] VITALS (15 sets, daily range): BP systolic 128–152; BP diastolic 60–77; PULSE 85–101; RESP 18–19; O2SAT 93–99
[2023-07-04] MEDS: ZOLPIDEM TARTRATE 5 MG TAB PO PRN ×2 (00:39→22:10)
[2023-07-04] MEDS: FUROSEMIDE 40MG VIAL IV SCH ×3 (04:34→19:49)
[2023-07-04 05:44] LABS: BASOPHILS # (AUTO) 0.08 K/uL (0.00-0.20); BASOPHILS % (AUTO) 1.5 % (0.0-5.0); EOSINOPHILS # (AUTO) 0.43 K/uL (0.00-0.70); EOSINOPHILS % (AUTO) 7.8 % (0.0-8.0); HEMATOCRIT 23.7 % (36-48); IMMATURE GRANULOCYTE ABSOLUTE 0.03 K/uL (0-1); LYMPHOCYTES # (AUTO) 1.4 K/uL (1.0-4.8); MEAN CORPUSCULAR HEMOGLOBIN 28.5 pg (27.0-33.0); MEAN CORPUSCULAR HGB CONC 30.8 g/dL (32.0-36.0); MEAN CORPUSCULAR VOLUME 92.6 fL (79-99); MONOCYTES # (AUTO) 0.5 K/uL (0.1-1.0); MONOCYTES % (AUTO) 9.7 % (3.0-13.0); NEUTROPHILS # (AUTO) 3.1 K/uL (1.8-7.7); NEUTROPHILS % (AUTO) 55.5 % (40.0-77.0); PLATELET COUNT (AUTO) 162 K/uL (130-400); RED BLOOD CELL COUNT(AUTO) 2.56 MIL/uL (4.00-5.50); RED CELL DISTRIBUTION WIDTH 14.8 % (11.0-15.5); WHITE BLOOD COUNT (AUTO) 5.5 K/uL (4.8-10.8)
[2023-07-04 06:03] LABS: ALBUMIN 2.7 g/dL (3.5-5.0); BILIRUBIN,TOTAL 0.5 mg/dL (0.2-1.0); CREATININE 1.4 mg/dL (0.5-1.5); MAGNESIUM 1.8 mg/dL (1.80-2.40); POTASSIUM 4.8 mmol/L (3.5-5.1); TOTAL PROTEIN, SERUM 6.6 g/dL (6.0-8.3)
[2023-07-04] MEDS: IPRATROPIUM/ALBUTEROL SULFATE 3 ML SOLUTION IH SCH ×5 (07:44→23:43)
[2023-07-04] MEDS: FAMOTIDINE 20MG VIAL IV SCH ×2 (08:23→19:49)
[2023-07-04] MEDS: GUAIFENESIN SUGAR-FREE 100 MG/5 ML UDCUP PO PRN ×2 (08:26→19:51)
[2023-07-04] MEDS: ENOXAPARIN SODIUM 30 MG/0.3 ML SQ SCH ×2 (09:00→19:50)
[2023-07-05] VITALS (13 sets, daily range): BP systolic 147–166; BP diastolic 68–92; PULSE 80–98; RESP 18–19; O2SAT 95
[2023-07-05] MEDS: FUROSEMIDE 40MG VIAL IV SCH ×3 (04:32→20:35)
[2023-07-05] MEDS: IPRATROPIUM/ALBUTEROL SULFATE 3 ML SOLUTION IH SCH ×4 (07:22→23:46)
[2023-07-05] MEDS: ENOXAPARIN SODIUM 30 MG/0.3 ML SQ SCH ×2 (09:00→21:00)
[2023-07-05] MEDS: FAMOTIDINE 20MG VIAL IV SCH ×2 (09:11→20:35)
[2023-07-05 10:34] LABS: HEMATOCRIT 25.3 % (36-48); MEAN CORPUSCULAR HEMOGLOBIN 27.9 pg (27.0-33.0); MEAN CORPUSCULAR HGB CONC 30.8 g/dL (32.0-36.0); MEAN CORPUSCULAR VOLUME 90.4 fL (79-99); RED BLOOD CELL COUNT(AUTO) 2.8 MIL/uL (4.00-5.50); WHITE BLOOD COUNT (AUTO) 5.7 K/uL (4.8-10.8)
[2023-07-05] MEDS: GUAIFENESIN SUGAR-FREE 100 MG/5 ML UDCUP PO PRN (10:49)
[2023-07-05 10:51] LABS: CREATININE 1.6 mg/dL (0.5-1.5); POTASSIUM 4.4 mmol/L (3.5-5.1)
[2023-07-06 06:32] VITALS: PULSE 101; RESP 18
[2023-07-06 11:10] VITALS: PULSE 103; RESP 18
[2023-07-07 09:06] LABS: BASOPHILS # (AUTO) 0.08 K/uL (0.00-0.20); BASOPHILS % (AUTO) 1.5 % (0.0-5.0); EOSINOPHILS # (AUTO) 0.37 K/uL (0.00-0.70); HEMATOCRIT 26.7 % (36-48); IMMATURE GRANULOCYTE ABSOLUTE 0.02 K/uL (0-1); LYMPHOCYTES % (AUTO) 19.5 % (21.0-51.0); MEAN CORPUSCULAR HEMOGLOBIN 28.2 pg (27.0-33.0); MEAN CORPUSCULAR HGB CONC 31.1 g/dL (32.0-36.0); MEAN CORPUSCULAR VOLUME 90.8 fL (79-99); MONOCYTES # (AUTO) 0.5 K/uL (0.1-1.0); MONOCYTES % (AUTO) 9.7 % (3.0-13.0); NEUTROPHILS # (AUTO) 3.3 K/uL (1.8-7.7); NEUTROPHILS % (AUTO) 61.9 % (40.0-77.0); PLATELET COUNT (AUTO) 177 K/uL (130-400); RED BLOOD CELL COUNT(AUTO) 2.94 MIL/uL (4.00-5.50); RED CELL DISTRIBUTION WIDTH 15.1 % (11.0-15.5); WHITE BLOOD COUNT (AUTO) 5.3 K/uL (4.8-10.8)
[2023-07-07 09:07] LABS: BILIRUBIN,TOTAL 0.5 mg/dL (0.2-1.0); CREATININE 1.5 mg/dL (0.5-1.5); POTASSIUM 3.9 mmol/L (3.5-5.1); TOTAL PROTEIN, SERUM 7.4 g/dL (6.0-8.3)
== END 2023-07-06 11:00 | disposition home or self-care (01) | DRG 291 ==
LOC: EDH 09:45 → EDHIP 12:20 → 3CH 23:02
PROVIDERS: ADMIT Internal Medicine Critical Care Medicine; ATTEND Internal Medicine Critical Care Medicine
DX: I13.0 Hypertensive heart and chronic kidney disease with heart failure and stage 1 through stage 4 chronic kidney disease, or unspecified chronic kidney disease (principal); I50.43 Acute on chronic combined systolic (congestive) and diastolic (congestive) heart failure; J18.9 Pneumonia, unspecified organism; J96.01 Acute respiratory failure with hypoxia; G72.81 Critical illness myopathy; N17.9 Acute kidney failure, unspecified; L03.115 Cellulitis of right lower limb; Z68.42 Body mass index [BMI] 45.0-49.9, adult; Z20.822 Contact with and (suspected) exposure to COVID-19; E11.65 Type 2 diabetes mellitus with hyperglycemia; N18.30 Chronic kidney disease, stage 3 unspecified; E11.22 Type 2 diabetes mellitus with diabetic chronic kidney disease; E66.01 Morbid (severe) obesity due to excess calories; E11.51 Type 2 diabetes mellitus with diabetic peripheral angiopathy without gangrene; E11.621 Type 2 diabetes mellitus with foot ulcer; D64.9 Anemia, unspecified; E11.42 Type 2 diabetes mellitus with diabetic polyneuropathy; E78.00 Pure hypercholesterolemia, unspecified; E66.9 Obesity, unspecified; Z95.1 Presence of aortocoronary bypass graft; Z87.891 Personal history of nicotine dependence
CPT/HCPCS: 36415; 71045; 80048; 80053; 82270; 82948; 83735; 83880; 84145; 84484; 85025; 85027; 85378; 87070; 87071; 87076; 87205; 87635; 87804; 87880; 93005; 93970; 94640; 94664; G0378; J1650; J1940; J3475; J3490; Q0163

== ENCOUNTER 2023-10-09 05:53 | Day surgery (SDC) | payer MEDICARE ==
[2023-10-06 13:29] LABS: BASOPHILS # (AUTO) 0.04 K/uL (0.00-0.20); BASOPHILS % (AUTO) 0.5 % (0.0-5.0); EOSINOPHILS # (AUTO) 0.27 K/uL (0.00-0.70); EOSINOPHILS % (AUTO) 3.7 % (0.0-8.0); HEMATOCRIT 28.3 % (36-48); IMMATURE GRANULOCYTE ABSOLUTE 0.03 K/uL (0-1); LYMPHOCYTES # (AUTO) 1.9 K/uL (1.0-4.8); LYMPHOCYTES % (AUTO) 26.1 % (21.0-51.0); MEAN CORPUSCULAR HEMOGLOBIN 27.4 pg (27.0-33.0); MEAN CORPUSCULAR HGB CONC 31.1 g/dL (32.0-36.0); MEAN CORPUSCULAR VOLUME 88.2 fL (79-99); MONOCYTES # (AUTO) 0.7 K/uL (0.1-1.0); MONOCYTES % (AUTO) 9.4 % (3.0-13.0); NEUTROPHILS # (AUTO) 4.4 K/uL (1.8-7.7); NEUTROPHILS % (AUTO) 59.9 % (40.0-77.0); PLATELET COUNT (AUTO) 161 K/uL (130-400); RED BLOOD CELL COUNT(AUTO) 3.21 MIL/uL (4.00-5.50); RED CELL DISTRIBUTION WIDTH 14.4 % (11.0-15.5); WHITE BLOOD COUNT (AUTO) 7.4 K/uL (4.8-10.8)
[2023-10-06 13:39] VITALS: BP 140/64; PULSE 90; RESP 16
[2023-10-06 13:44] LABS: INR 0.98 (0.85-1.15); PROTHROMBIN TIME 11.4 SEC (9.6-11.6)
[2023-10-06 14:21] LABS: CREATININE 1.6 mg/dL (0.5-1.5); POTASSIUM 4.7 mmol/L (3.5-5.1)
[~2023-10-09] VITALS: Ht 167.6 cm; Wt 127.1 kg
[2023-10-09] VITALS (11 sets, daily range): BP systolic 124–154; BP diastolic 53–79; PULSE 83–99; RESP 14–18
[~2023-10-09 05:53] MED LIST changes: -AMOX-426 PO; -ASCO500T20 PO; -FERR-72 PO; -GABA-529 PO; +LINA145C PO; -NITR0.4T50 SL; -RIVA2.5T PO
[2023-10-09] MEDS ORDERED: 0.9%NACL 1000ML 1,000 ML IV ONE (06:38)
[2023-10-09] MEDS ORDERED: IODIXANOL 320 MG/ML 100 ML VIAL ONE (07:08)
[2023-10-09] MEDS ORDERED: NITROGLYCERIN 50MG VIAL ONE (07:08)
[2023-10-09] MEDS ORDERED: HEPARIN 10,000 UNIT/10ML (1,000 UNIT/ML) VIAL ONE (07:08)
[2023-10-09] MEDS ORDERED: LIDOCAINE HCL 400MG/20ML VIAL ONE (07:08)
[2023-10-09] MEDS ORDERED: FENTANYL CITRATE PF 50 MCG/1 ML 2ML VIAL ONE (07:21)
[2023-10-09] MEDS ORDERED: MIDAZOLAM HCL 1 MG/ML 2ML VIAL ONE ×2 (07:21→08:08)
[2023-10-09] MEDS ORDERED: CLOPIDOGREL 300MG TAB ONE (08:47)
[2023-10-09] MEDS ORDERED: ASPIRIN 81MG CHEW TAB ONE (08:48)
[2023-10-09] MEDS ORDERED: NITROGLYCERIN 0.4 MG SL TAB SL PRN (09:00)
[2023-10-09] MEDS ORDERED: HYDRALAZINE 20MG/ML VIAL IV PRN (09:00)
[2023-10-09] MEDS ORDERED: DEXTROSE 50%-WATER 50 ML DISP.SYRIN IV PRN (09:00)
[2023-10-09] MEDS ORDERED: 0.9%NACL 1000ML 1,000 ML IV SCH (09:00)
[2023-10-09] MEDS ORDERED: GLUCAGON 1MG KIT 1 MG ML IM PRN (09:00)
[2023-10-09] MEDS ORDERED: ACETAMINOPHEN WITH CODEINE 1 TAB TAB PO PRN (09:00)
[2023-10-09] MEDS ORDERED: CLOPIDOGREL 75MG TAB PO SCH (09:00)
[2023-10-09] MEDS ORDERED: METOPROLOL TARTRATE 1 MG/ML 5ML VIAL IV PRN (09:00)
[2023-10-09] MEDS ORDERED: INSULIN HUMULIN R 100 UNIT/ML 3ML SQ SCH (11:30)
== END 2023-10-09 15:15 | disposition home or self-care (01) ==
LOC: DAH 05:53
PROVIDERS: ATTEND Internal Medicine Cardiovascular Disease
DX: I70.238 Atherosclerosis of native arteries of right leg with ulceration of other part of lower leg (principal); L97.818 Non-pressure chronic ulcer of other part of right lower leg with other specified severity; E11.51 Type 2 diabetes mellitus with diabetic peripheral angiopathy without gangrene; I11.0 Hypertensive heart disease with heart failure; I70.1 Atherosclerosis of renal artery; I87.2 Venous insufficiency (chronic) (peripheral); I65.29 Occlusion and stenosis of unspecified carotid artery; I25.10 Atherosclerotic heart disease of native coronary artery without angina pectoris; I25.5 Ischemic cardiomyopathy; E66.01 Morbid (severe) obesity due to excess calories; M19.90 Unspecified osteoarthritis, unspecified site; Z68.42 Body mass index [BMI] 45.0-49.9, adult; Z90.49 Acquired absence of other specified parts of digestive tract; Z98.890 Other specified postprocedural states; Z82.49 Family history of ischemic heart disease and other diseases of the circulatory system; Z83.3 Family history of diabetes mellitus; Z86.16 Personal history of COVID-19; Z95.1 Presence of aortocoronary bypass graft; Z79.85 Long-term (current) use of injectable non-insulin antidiabetic drugs; Z79.899 Other long term (current) drug therapy; Z79.01 Long term (current) use of anticoagulants
CPT/HCPCS: 80048; 85025; 85610; 85730; 36415; 75716; 37252; 82948 ×2; C9764; C1887; C1725; C1769 ×2; C1894 ×2; C1893; C1760; C1753; J3010; J3490 ×2; J7030; J1644 ×2; J2250; Q9967; A4215; A4222; A4663; A4216; A4606; A4223 ×3; 75774; 96360; 96361; 99156; 99157

== ENCOUNTER → 2024-01-21 | Outpatient (CLI) | payer MEDICARE | END | disposition home or self-care (01) | LOC: SHCH 10:14 | PROVIDERS: ATTEND Internal Medicine Cardiovascular Disease | DX: I73.9 Peripheral vascular disease, unspecified (principal) | CPT/HCPCS: 93925 ==

== ENCOUNTER 2024-04-01 13:03 | Emergency (ER) | payer MEDICARE ==
[~2024-04-01] VITALS: Ht 165.1 cm; Wt 122.0 kg
[~2024-04-01 13:03] MED LIST changes: -AEC81 PO; +ASPI-1443 PO; -ATOR10 PO; +ATOR20TA65 PO; +CETI10TA57 PO; +CLOP75TA32 PO; +FERR-82 PO; -FOLI0.8T43 PO; +FOLI1TAB85 PO; +HYDR-4068 PO; -INSU3INS5 SQ; +LEVO750T68 PO; +METR-172 PO; -NIFE-40 PO; -PANT20TA18 PO; +QUET50TA24 PO; +SODI650T PO; -TRAZ-185 PO; +TRAZ150 PO; -ZOLP5TAB8 PO
[2024-04-01] MEDS: BISACODYL 10 MG SUPP.RECT RC ONE (13:42)
[2024-04-01 15:10] VITALS: BP 147/75; PULSE 96; RESP 18; O2SAT 100
== END 2024-04-01 15:44 | disposition home or self-care (01) ==
LOC: EEVIPCON 13:03 → EDH 13:03
DX: K59.00 Constipation, unspecified (principal); E11.9 Type 2 diabetes mellitus without complications; E66.9 Obesity, unspecified; E78.00 Pure hypercholesterolemia, unspecified; I11.0 Hypertensive heart disease with heart failure; I50.9 Heart failure, unspecified; Z79.02 Long term (current) use of antithrombotics/antiplatelets; Z79.82 Long term (current) use of aspirin; Z79.899 Other long term (current) drug therapy; Z95.1 Presence of aortocoronary bypass graft

== ENCOUNTER → 2024-07-06 | Outpatient (CLI) | payer MEDICARE | END | disposition home or self-care (01) | LOC: SHCH 07:54 | PROVIDERS: ATTEND Internal Medicine Cardiovascular Disease | DX: I70.293 Other atherosclerosis of native arteries of extremities, bilateral legs (principal); Z98.62 Peripheral vascular angioplasty status | CPT/HCPCS: 93925 ==